=== PATIENT | male | born 1940 | race Caucasian/White ===

== ENCOUNTER 2016-12-07 15:20 | Inpatient (IN) | payer MEDICARE ==
[~2016-12-07] VITALS: Ht 180.3 cm; Wt 115.0 kg
[2016-12-07 15:54] VITALS: BP 128/88; PULSE 62; RESP 18; TEMP 98.2; O2SAT 100
[2016-12-07 16:08] VITALS: BP 107/72; PULSE 100; RESP 18; O2SAT 97
--- NOTE | 2016-12-07 16:14 | PD ---
HPI Chief Complaint: Fall Time Seen by Provider: 16:04 Travel History International Travel<30 days: No Contact w/Intl Traveler<30days: No Traveled to known affect area: No History of Present Illness HPI Is a 76-year-old male presents emergency department after being found wandering his neighborhood. Not much history is available initially the patient has a history of dementia. His arrives and states she went to the grocery store and left him alone and he must of started to wonder. Unknown history of fall however the patient does have some abrasions on the left side of his face. She states that he is not on anticoagulants. Patient is pleasantly confused oriented to self and place only. Denies any pain in his chest abdomen pelvis or extremities. [facility] Past Medical History Medical History: Unable to Obtain Past Surgical History Surgical History: Unable to Obtain Social History Alcohol Use: No Tobacco Use: No Substance Use: No Allergies-Medications (Allergen,Severity, Reaction): Coded Allergies: No Known Allergies (Unverified , 12/07/16) Reported Meds & Prescriptions Reported Meds & Active Scripts Active Active Prescriptions or Reported Medications Unobtainable Review of Systems Except as stated in HPI: all other systems reviewed are Neg Physical Exam Narrative GENERAL: Well-developed well-nourished no obvious distress, pleasantly confused. SKIN: Focused skin assessment warm/dry. HEAD: No collins signs or raccoons eyes, abrasion to left forehead.. Normocephalic. EYES: Pupils equal and round. No scleral icterus. No injection or drainage. ENT: No nasal bleeding or discharge. Mucous membranes pink and moist. NECK: Trachea midline. No JVD. CARDIOVASCULAR: Regular rate and rhythm. No murmur appreciated. RESPIRATORY: No accessory muscle use. Clear to auscultation. Breath sounds equal bilaterally. GASTROINTESTINAL: Abdomen soft, non-tender, nondistended. Hepatic and splenic margins not palpable. MUSCULOSKELETAL: No obvious deformities. No clubbing. No cyanosis. No edema. NEUROLOGICAL: Awake and alert oriented 2 and confused. Cranial nerves II through XII are grossly intact and nonfocal, 5 out of 5 strength in all 4 extremity's. Normal speech. This is his baseline mental status according to family. PSYCHIATRIC: Appropriate mood and affect; insight and judgment normal. Data Data Last Documented VS Vital Signs Date Time Temp Pulse Resp B/P Pulse Ox O2 Delivery O2 Flow Rate FiO2 7/27/17 17:53 87 18 112/74 96 Room Air 12/07/16 15:54 98.2 Orders Electrocardiogram (12/07/16 16:10) Complete Blood Count With Diff (12/07/16 16:10) Comprehensive Metabolic Panel (12/07/16 16:10) Creatine Kinase (Cpk) (12/07/16 16:10) Prothrombin Time / Inr (Pt) (12/07/16 16:10) Act Partial Throm Time (Ptt) (12/07/16 16:10) Ct Brain W/O Iv Contrast(Rout) (12/07/16 16:10) Blood Glucose (12/07/16 16:10) Ecg Monitoring (12/07/16 16:10) Iv Access Insert/Monitor (12/07/16 16:10) Oximetry (12/07/16 16:10) Sodium Chloride 0.9% Flush (Ns Flush) (12/07/16 16:15) Ct Cerv Spine W/O Contrast (12/07/16 ) Admit Order (Ed Use Only) (12/07/16 ) Consult Neurosurgery (12/07/16 ) Labs Laboratory Tests Test 12/07/16 16:37 White Blood Count 6.7 TH/MM3 Red Blood Count 5.44 MIL/MM3 Hemoglobin 16.1 GM/DL Hematocrit 49.4 % Mean Corpuscular Volume 90.9 FL Mean Corpuscular Hemoglobin 29.6 PG Mean Corpuscular Hemoglobin 32.6 % Concent Red Cell Distribution Width 14.9 % Platelet Count 127 TH/MM3 Mean Platelet Volume 8.1 FL Neutrophils (%) (Auto) 79.6 % Lymphocytes (%) (Auto) 8.1 % Monocytes (%) (Auto) 10.3 % Eosinophils (%) (Auto) 1.7 % Basophils (%) (Auto) 0.3 % Neutrophils # (Auto) 5.3 TH/MM3 Lymphocytes # (Auto) 0.5 TH/MM3 Monocytes # (Auto) 0.7 TH/MM3 Eosinophils # (Auto) 0.1 TH/MM3 Basophils # (Auto) 0.0 TH/MM3 CBC Comment DIFF FINAL Differential Comment Prothrombin Time 11.9 SEC Prothromb Time International 1.1 RATIO Ratio Activated Partial 28.2 SEC Thromboplast Time Sodium Level 138 MEQ/L Potassium Level 5.2 MEQ/L Chloride Level 105 MEQ/L Carbon Dioxide Level 25.1 MEQ/L Anion Gap 8 MEQ/L Blood Urea Nitrogen 23 MG/DL Creatinine 1.10 MG/DL Estimat Glomerular Filtration 65 ML/MIN Rate Random Glucose 84 MG/DL Calcium Level 8.5 MG/DL Total Bilirubin 0.9 MG/DL Aspartate Amino Transf 32 U/L (AST/SGOT) Alanine Aminotransferase 22 U/L (ALT/SGPT) Alkaline Phosphatase 87 U/L Total Creatine Kinase 91 U/L Total Protein 6.3 GM/DL Albumin 3.2 GM/DL MDM Medical Decision Making Medical Screen Exam Complete: Yes Emergency Medical Condition: Yes Interpretation(s) EKG shows atrial fibrillation at a rate of 100, right bundle branch block. No concerning ST segment changes. PVCs. Differential Diagnosis Fall, dementia, intracranial hemorrhage, neck injury. Narrative Course Patient roomed in emergency department, CT scans were performed and shows: Last [address] 12/07/16 1610 Signed Impressions: Service Date/Time: November 16:48 - CONCLUSION: 1. Minimal acute subdural hemorrhage within the left high parietal region which likely is post traumatic. Clinical correlation is recommended. 2. Diffuse cerebral atrophy. 3. No acute infarct, midline shift or acute subdural/epidural hematoma. Sukh Mejia MD Cervical Spine CT 12/07/16 0000 Signed Impressions: Service Date/Time: November 16:48 - CONCLUSION: 1. No acute fracture or prevertebral soft tissue swelling. 2. Significant degenerative disc disease at C6-7, C7-T1 and T1-T2. 3. No bony spinal canal stenosis or significant neural foraminal narrowing. Sukh Mejia MD Imaging was discussed with family and Dr. Onel Hall states likely nonoperative management. Blood pressure in acceptable ranges, platelet count normal, coagulations normal. Patient discussed with Dr. Link for admission to [facility] he is agreeable. Critical Care Narrative Aggregate critical care time was 35 minutes. Time to perform other separately billable procedures was not included in the critical care time. My time did not include minutes spent treating any other patients simultaneously or on activities that did not directly contribute to the patient's treatment. The services I provided to this patient were to treat and/or prevent clinically significant deterioration that could result in: , disability, organ failure I provided critical care services requiring my management, as noted below: Chart data review, documentation time, medication orders and management, vital sign assessments/reviewing monitor data, ordering and reviewing lab tests, ordering and interpreting/reviewing x-rays and diagnostic studies, care of the patient and discussion of the patient with the admitting physicians. Diagnosis Primary Impression: Intracranial hemorrhage Admitting Information Admitting Physician Requests: Admit Scripts Unable to Obtain Active Prescriptions or Reported Meds Condition: Stable Sukh Hernandez MD Dec 07, 2016 16:14
[2016-12-07] MEDS ORDERED: SODIUM CHLORIDE 0.9% FLUSH 5 ML FLUSH IV FLUSH PRN (16:15)
--- NOTE | 2016-12-07 17:01 | RADRPT ---
EXAM DATE/TIME: 12/07/2016 16:48 [facility] COMPARISON: No previous studies available for comparison. INDICATIONS : Confusion and altered mental status due to possible fall. RADIATION DOSE: 41.81 CTDIvol (mGy) MEDICAL HISTORY : Dementia. AFIB SURGICAL HISTORY : None. ENCOUNTER: Initial ACUITY: 1 day PAIN SCALE: 2/10 LOCATION: Bilateral cranial TECHNIQUE: Multiple contiguous axial images were obtained of the head. Using automated exposure control and adj ustment of the mA and/or kV according to patient size, radiation dose was kept as low as reasonably a chievable to obtain optimal diagnostic quality images. DICOM format image data is available electro nically for review and comparison. FINDINGS: There is minimal acute subarachnoid hemorrhage within the left high parietal region which likely is p osttraumatic. Clinical correlation is recommended. Diffuse cerebral atrophy. There is no midline shif t. No acute infarction is noted. No acute subdural or epidural hematoma is noted. The bone windows ar e unremarkable without skull fracture. CONCLUSION: 1. Minimal acute subdural hemorrhage within the left high parietal region which likely is post trauma tic. Clinical correlation is recommended. 2. Diffuse cerebral atrophy. 3. No acute infarct, midline shift or acute subdural/epidural hematoma. Sukh Mejia MD on December 07, 2016 at 16:56 Board Certified Radiologist. This report was verified electronically.
--- NOTE | 2016-12-07 17:10 | EKG ---
Date Performed: 12/07/2016 Time Performed: 16:12:05 PTAGE: 76 years EKG: ATRIAL FIBRILLATION WITH RAPID VENTRICULAR RESPONSE RIGHT BUNDLE BRANCH BLOCK ABNORMAL ECG INTERPRETATION BASED ON A DEFAULT AGE OF 39 YEARS NO PREVIOUS TRACING DOCTOR: Osmar Thrasher Interpretating Date/Time 12/07/2016 17:08:44
[2016-12-07 17:13] LABS: AUTOMATED NEUTROPHIL # 5.3 TH/MM3 (1.8-7.7); BASOPHIL % 0.3 % (0.0-2.0); EOSINOPHIL # 0.1 TH/MM3 (0-0.4); EOSINOPHIL % 1.7 % (0.0-4.0); HEMATOCRIT 49.4 % (39.0-51.0); HEMO FLAGS DIFF FINAL; LYMPH % 8.1 % (9.0-44.0); LYMPHOCYTE # 0.5 TH/MM3 (1.0-4.8); MEAN CELL VOLUME 90.9 FL (80.0-100.0); MEAN CORPUSCULAR HEMOGLOBIN 29.6 PG (27.0-34.0); MEAN CORPUSCULAR HGB CONC 32.6 % (32.0-36.0); MONO % 10.3 % (0.0-8.0); NEUT % 79.6 % (16.0-70.0); PLATELET COUNT 127 TH/MM3 (150-450); RED BLOOD COUNT 5.44 MIL/MM3 (4.50-5.90); RED CELL DISTRIBUTION WIDTH 14.9 % (11.6-17.2); WHITE BLOOD COUNT 6.7 TH/MM3 (4.0-11.0)
[2016-12-07 17:29] LABS: APTT (PATIENT) 28.2 SEC (24.3-30.1); INTERNATIONAL NORMALIZED RATIO 1.1 RATIO; PROTHROMBIN TIME - PATIENT 11.9 SEC (9.8-11.6)
--- NOTE | 2016-12-07 17:42 | RADRPT ---
EXAM DATE/TIME: 12/07/2016 16:48 [facility] COMPARISON: No previous studies available for comparison. INDICATIONS : Neck pain due to possible fall. RADIATION DOSE: 23.02 CTDIvol (mGy) MEDICAL HISTORY : Dementia. AFIB SURGICAL HISTORY : None. ENCOUNTER: Initial ACUITY: 1 day PAIN SCALE: 1/10 LOCATION: Bilateral neck region. TECHNIQUE: Volumetric scanning of the cervical spine was performed. Multiplanar reconstructions in the sagittal, coronal and oblique axial planes were performed. Using automated exposure control and adjustment o f the mA and/or kV according to patient size, radiation dose was kept as low as reasonably achievable to obtain optimal diagnostic quality images. DICOM format image data is available electronically f or review and comparison. FINDINGS: There is no acute fracture or prevertebral soft tissue swelling. The bony relationship and alignment between C1 and C2 is well maintained. No bony spinal canal stenosis is noted. Significant disc spa ce narrowing is noted at C6-7, C7-T1 and T1-T2. CONCLUSION: 1. No acute fracture or prevertebral soft tissue swelling. 2. Significant degenerative disc disease at C6-7, C7-T1 and T1-T2. 3. No bony spinal canal stenosis or significant neural foraminal narrowing. Sukh Mejia MD on December 07, 2016 at 17:32 Board Certified Radiologist. This report was verified electronically.
[2016-12-07 17:53] VITALS: BP 112/74; PULSE 87; RESP 18; O2SAT 96
[2016-12-07 18:06] LABS: ALKALINE PHOSPHATASE 87 U/L (45-117); ALT (GPT) 22 U/L (12-78); ANION GAP 8 MEQ/L (5-15); AST (GOT) 32 U/L (15-37); BICARBONATE 25.1 MEQ/L (21.0-32.0); BLOOD UREA NITROGEN 23 MG/DL (7-18); CHLORIDE 105 MEQ/L (98-107); CREATINE KINASE 91 U/L (39-308); GLOMERULAR FILTRATION RATE 65 ML/MIN (>89); POTASSIUM 5.2 MEQ/L (3.5-5.1); SODIUM (NA) 138 MEQ/L (136-145); TOTAL BILIRUBIN ADULT 0.9 MG/DL (0.2-1.0)
[2016-12-07 19:20] VITALS: BP 119/71; PULSE 89; RESP 16; O2SAT 99
[2016-12-07] MEDS ORDERED: ACETAMINOPHEN 325 MG TAB PO PRN (20:30)
[2016-12-07] MEDS ORDERED: SENNOSIDES 8.6 MG TAB PO PRN (20:30)
[2016-12-07] MEDS ORDERED: CHLORHEXIDINE GLUCONATE 2 % 1 PACK (2 CLOTHS) TOP PRN (20:30)
[2016-12-07] MEDS ORDERED: BISACODYL 10 MG SUPP RECTAL PRN (20:30)
[2016-12-07] MEDS ORDERED: MAGNESIUM HYDROXIDE SUSP 30 ML CUP PO PRN (20:30)
[2016-12-07] MEDS ORDERED: MISCELLANEOUS NURSING INFORMATION XX SCH (20:30)
[2016-12-07] MEDS ORDERED: ONDANSETRON HCL 4 MG/2 ML VIAL IV PRN (20:30)
[2016-12-07] MEDS ORDERED: RESP: ALBUTEROL 2.5 MG/IPRATROPIUM 0.5 MG NEB (PRN) INH (20:30)
[2016-12-07] MEDS ORDERED: LACTULOSE SYRUP 20 GM/30 ML CUP PO PRN (20:30)
[2016-12-07] MEDS ORDERED: SODIUM CHLORIDE 0.9% FLUSH 10 ML FLUSH PRN (20:30)
[2016-12-07] MEDS ORDERED: Vancomycin Consult Pharmacy 1 EA OTHER SCH (20:30)
[2016-12-07 21:00] VITALS: BP 114/60; PULSE 87; RESP 13; TEMP 97.7; O2SAT 6
[2016-12-07] MEDS ORDERED: VANCOMYCIN INJ 1,000 MG in SODIUM CHLOR 0.9% 250 ML INJ 250 ML IV ONE (21:00)
--- NOTE | 2016-12-07 21:09 | HHI.HP ---
HPI Service Critical Care Medicine Primary Care Physician Josette Mahmood MD Admission Diagnosis Subarachnoid Hemorrhage. Diagnosis: Travel History International Travel<30 Days: No Contact w/Intl Traveler <30 Da: No Traveled to Known Affected Are: No History of Present Illness 76-year-old pleasantly demented male presents after he eloped from home and has being found wandering his neighborhood. Per his statement she went to the grocery store and left him alone. Unknown history of fall however the patient does have some abrasions and bruises on the left side of his face. She states that he is not on anticoagulants. CT of the head in the emergency department revealed minimal acute subdural hemorrhage within the left high parietal region which likely is post traumatic. Review of Systems ROS Unobtainable due to patient's baseline dementia Past Family Social History Allergies: Coded Allergies: No Known Allergies (Unverified , 12/07/16) Past Medical History Personal dementia Alzheimer type Past Surgical History Unobtainable Reported Medications Reported Meds & Active Scripts Active Reported Aricept (Donepezil HCl) 10 Mg Tablet 10 Mg PO DAILY@1600 Active Ordered Medications Current Medications Medications (Trade) Dose Ordered Sig/Ari Route PRN Reason Start Time Stop Time Status Last Admin Dose Admin Sodium Chloride (NS 1000 ml Inj) 1,000 ml @ 84 mls/hr [id number] IV 12/07/16 21:00 Sodium Chloride (NS Flush) 2 ml UNSCH PRN .XX FLUSH AFTER USING IV ACCESS 12/07/16 20:30 Sodium Chloride (NS Flush) 2 ml BID .XX 12/07/16 21:00 Acetaminophen (Tylenol) 650 mg Q6H PRN PO PAIN 1-10 AND/OR FEVER >101F 12/07/16 20:30 Famotidine (Pepcid Inj) 20 mg Q12HR IV PUSH 12/07/16 21:00 Ondansetron HCl (Zofran Inj) 4 mg Q6H PRN IV NAUSEA OR VOMITING 12/07/16 20:30 Miscellaneous Information 1 [id number] XX 12/07/16 20:30 Chlorhexidine Gluconate (Chlorhexidine 2% Cloth) 3 pack Taper DAILY@04 TOP 12/08/16 04:00 12/04/17 03:59 Chlorhexidine Gluconate (Chlorhexidine 2% Cloth) 3 pack UNSCH PRN [facility] 12/07/16 20:30 Senna/Docusate Sodium (Pastora-Colace) 1 tab BID PO 12/07/16 21:00 Magnesium Hydroxide (Milk Of Akila Lijulio césar) 30 ml Q12H PRN PO MILD - MODERATE CONSTIPATION 12/07/16 20:30 Sennosides (Senokot) 17.2 mg Q12H PRN PO MODERATE - SEVERE CONSTIPATION 12/07/16 20:30 Bisacodyl (Dulcolax Supp) 10 mg DAILY PRN RECTAL SEVERE CONSITIPATION 12/07/16 20:30 Lactulose 30 ml 30 ml DAILY PRN PO SEVERE CONSITIPATION 12/07/16 20:30 Piperacillin Sod/ Tazobactam Sod 100 ml @ 200 mls/hr Q6H IV 12/07/16 21:00 Vancomycin HCl 1000 mg/Sodium Chloride 250 ml @ 125 mls/hr ONCE ONCE IV 12/07/16 21:00 12/07/16 22:59 Pharmacy Profile Note 0 ml @ 0 mls/hr UNSCH OTHER 12/07/16 20:30 Vancomycin HCl/ Sodium Chloride (Vancomycin Inj/ NS 500 ml Inj) 515 ml @ 257.5 mls/ hr Q18H IV 12/08/16 09:00 Miscellaneous Information SPECIFIC LAB TO BE DRAWN:VANCO TROUGH DATE TO BE DR... ONCE ONCE .XX 12/09/16 20:45 12/09/16 20:46 Family History No family history of early cancer or coronary artery disease Social History Denies alcohol or illicit drug or tobacco abuse Physical Exam Vital Signs Vital Signs Date Time Temp Pulse Resp B/P Pulse Ox O2 Delivery O2 Flow Rate FiO2 12/07/16 19:21 89 14 99 Room Air 12/07/16 19:20 89 16 119/71 99 Room Air 12/07/16 17:53 87 18 112/74 96 Room Air 12/07/16 16:08 100 18 107/72 97 Room Air 12/07/16 15:54 98.2 62 18 128/88 100 Physical Exam GENERAL: Well-nourished, well-developed patient. Pleasantly demented gentleman SKIN: Warm and dry. HEAD: Normocephalic. Abrasions and ecchymosis of the left forehead and face EYES: No scleral icterus. No injection or drainage. NECK: Supple, trachea midline. No JVD or lymphadenopathy. CARDIOVASCULAR: Regular rate and rhythm without murmurs, gallops, or rubs. RESPIRATORY: Breath sounds equal bilaterally. No accessory muscle use. GASTROINTESTINAL: Abdomen soft, non-tender, nondistended. MUSCULOSKELETAL: No cyanosis, or edema. BACK: Nontender without obvious deformity. No CVA tenderness. EXTREMITIES: Moves all 4, no clubbing or cyanosis. Redness and edema on both lower extremities with some warm skin due to cellulitis Laboratory Laboratory Tests Test 12/07/16 16:37 White Blood Count 6.7 Red Blood Count 5.44 Hemoglobin 16.1 Hematocrit 49.4 Mean Corpuscular Volume 90.9 Mean Corpuscular Hemoglobin 29.6 Mean Corpuscular Hemoglobin 32.6 Concent Red Cell Distribution Width 14.9 Platelet Count 127 Mean Platelet Volume 8.1 Neutrophils (%) (Auto) 79.6 Lymphocytes (%) (Auto) 8.1 Monocytes (%) (Auto) 10.3 Eosinophils (%) (Auto) 1.7 Basophils (%) (Auto) 0.3 Neutrophils # (Auto) 5.3 Lymphocytes # (Auto) 0.5 Monocytes # (Auto) 0.7 Eosinophils # (Auto) 0.1 Basophils # (Auto) 0.0 CBC Comment DIFF FINAL Differential Comment Prothrombin Time 11.9 Prothromb Time International 1.1 Ratio Activated Partial 28.2 Thromboplast Time Sodium Level 138 Potassium Level 5.2 Chloride Level 105 Carbon Dioxide Level 25.1 Anion Gap 8 Blood Urea Nitrogen 23 Creatinine 1.10 Estimat Glomerular Filtration 65 Rate Random Glucose 84 Calcium Level 8.5 Total Bilirubin 0.9 Aspartate Amino Transf 32 (AST/SGOT) Alanine Aminotransferase 22 (ALT/SGPT) Alkaline Phosphatase 87 Total Creatine Kinase 91 Total Protein 6.3 Albumin 3.2 Result Diagram: 12/07/16 1637 12/07/16 1637 Imaging Last [address] 12/07/16 1610 Signed Impressions: Service Date/Time: November 16:48 - CONCLUSION: 1. Minimal acute subdural hemorrhage within the left high parietal region which likely is post traumatic. Clinical correlation is recommended. 2. Diffuse cerebral atrophy. 3. No acute infarct, midline shift or acute subdural/epidural hematoma. Sukh Mejia MD Cervical Spine CT 12/07/16 0000 Signed Impressions: Service Date/Time: November 16:48 - CONCLUSION: 1. No acute fracture or prevertebral soft tissue swelling. 2. Significant degenerative disc disease at C6-7, C7-T1 and T1-T2. 3. No bony spinal canal stenosis or significant neural foraminal narrowing. Sukh Mejia MD Assessment and Plan Assessment and Plan Small subdural hematoma - No intervention indicated - Repeat CT head a.m. - Neurosurgery appreciated - PT and OT Cellulitis - Vancomycin and Zosyn - Blood cultures Alzheimer dementia - Aricept DVT GI prophylaxis - Teds SCDs - No pharmacological DVT prophylaxis due to ICH - Pepcid Critical Care: The total critical care time was 35 minutes. Time to perform other separately billable procedures was not included in the critical care time. Julian Link MD Dec 07, 2016 21:09
[2016-12-07] MEDS ORDERED: ARIC10TA2 PO (21:33)
[2016-12-07] MEDS ORDERED: SILV1CRE20 TOPICAL (21:51)
[2016-12-07] MEDS ORDERED: ATEN50TA PO (21:51)
[2016-12-07] MEDS ORDERED: FURO1TAB62 PO (21:51)
[2016-12-07] MEDS ORDERED: LEVO175T2 PO (21:51)
[2016-12-07] MEDS ORDERED: CEPH500C PO (21:51)
[2016-12-07] MEDS ORDERED: PRAV20TA2 PO (21:51)
[2016-12-07] MEDS ORDERED: POTA8CAP PO (21:51)
[2016-12-07] MEDS: SODIUM CHLOR 0.9% 1000 ML INJ 1,000 ML IV SCH (22:21)
[2016-12-07] MEDS: PIPERACIL-TAZO 4.5 GM PREMIX 100 ML IV SCH (22:22)
[2016-12-07] MEDS: SODIUM CHLORIDE 0.9% FLUSH 10 ML FLUSH SCH (22:22)
[2016-12-07] MEDS: FAMOTIDINE 20 MG/2 ML VIAL IV PUSH SCH (22:27)
[2016-12-07] MEDS: DOCUSATE SODIUM 50 MG/SENNA 8.6 MG TAB PO SCH (22:28)
[2016-12-07 23:00] VITALS: PULSE 103
--- NOTE | 2016-12-07 23:03 | PD.CONS ---
History of Present Illness Service Neurosurgery Consult Requested By Emergency room. Dr. Hernandez Reason for Consult Traumatic brain injury Primary Care Physician Josette Mahmood MD Diagnoses: History of Present Illness Pleasant 76-year-old male with a history of dementia who apparently was wandering in his neighborhood while his was at the grocery store. No definite trauma, but the patient has obvious abrasions to the left face and periorbital region. No history of seizure. No emesis reported. The patient denies any headaches dizziness vision problems pain which is numbness in the extremities. However he is noted to be a poor historian. He states that he may have fallen this evening. Review of Systems Patient is unable to give a reliable review of systems. He does not complain of anything and gives negative responses for all review of systems items Past Family Social History Allergies: Coded Allergies: No Known Allergies (Unverified , 12/07/16) Past Medical History History of atrial fibrillation. Previously on Coumadin but not any longer according to his family. Hypertension Hyperlipidemia Hypothyroidism Dementia Reported Medications Reported Meds & Active Scripts Active Reported Silvadene Topical (Silver Sulfadiazine) 1 % Cream 1 Applic TOPICAL DAILY Cephalexin 500 Mg Cap 500 Mg PO Q12H Potassium Chloride ER (Potassium Chloride) 8 Meq Cap 8 Meq PO DAILY Lasix (Furosemide) 20 Mg Tab 20 Mg PO DAILY Atenolol 50 Mg Tab 50 Mg PO DAILY Pravastatin 20 Mg Tab 20 Mg PO DAILY Levothyroxine (Levothyroxine Sodium) 175 Mcg Tab 175 Mcg PO DAILY Aricept (Donepezil HCl) 10 Mg Tablet 10 Mg PO DAILY@1600 Social History No history of significant alcohol use. Does not smoke cigarettes Lives with his Physical Exam Vital Signs Vital Signs Date Time Temp Pulse Resp B/P Pulse Ox O2 Delivery O2 Flow Rate FiO2 12/07/16 21:00 97.7 87 13 114/60 6 12/07/16 19:21 89 14 99 Room Air 12/07/16 19:20 89 16 119/71 99 Room Air 12/07/16 17:53 87 18 112/74 96 Room Air 12/07/16 16:08 100 18 107/72 97 Room Air 12/07/16 15:54 98.2 62 18 128/88 100 Physical Exam GENERAL: This is a well-nourished, well-developed patient, in no apparent distress. SKIN: Mild laceration and abrasions to the left hand and forearm. HEAD: Atraumatic. Normocephalic. No temporal or scalp tenderness. EYES: Mild left conjunctival edema and scleral ecchymosis.. ENT: Moderate left facial and infraorbital ecchymosis and contusion and edema. No other facial fracture or deformity noted. No CSF otorrhea or rhinorrhea. Dentition reasonably intact. Oropharynx otherwise clear. NECK: Trachea midline. No JVD or lymphadenopathy. Supple, nontender, no meningeal signs. CARDIOVASCULAR: Irregular rhythm. No murmur or carotid bruit RESPIRATORY: Clear to auscultation. Breath sounds equal bilaterally. No wheezes , rales, or rhonchi. GASTROINTESTINAL: Abdomen soft, non-tender, nondistended. No hepato-splenomegaly , or palpable masses. No guarding. MUSCULOSKELETAL: Mild to moderate distal lower extremity edema without ecchymosis. His left toes are somewhat cold to touch but no definite cyanosis. Dorsalis pedis pulses 2+ bilateral. No significant long bone or joint deformity. No pain with extremity range of motion throughout the upper and lower extremities. NEUROLOGICAL: Awake and alert Oriented to his name only. He does not know where he is. He does not know the date. Speech is clear Conversant. He gives mostly negative responses when asked regarding any health problems or any recent fall. Follow simple commands well Answers simple questions Markedly diminished judgment and insight Recent and remote memory are significantly impaired No evidence of anxiety or depression Pupils are equal and reactive to accommodation. Extra-ocular movements, visual hood to confrontation, facial sensorimotor, tongue, palate, sternocleidomastoid testing, hearing to finger rub testing, and bilateral shoulder shrug are all intact. Sensation is intact to light touch in all extremities Strength normal major flexion and extension groups all extremities Bran's absent bilaterally No ankle clonus Plantar responses absent bilateral Fine motor movements intact upper extremities Laboratory Laboratory Tests Test 12/07/16 16:37 White Blood Count 6.7 Red Blood Count 5.44 Hemoglobin 16.1 Hematocrit 49.4 Mean Corpuscular Volume 90.9 Mean Corpuscular Hemoglobin 29.6 Mean Corpuscular Hemoglobin 32.6 Concent Red Cell Distribution Width 14.9 Platelet Count 127 Mean Platelet Volume 8.1 Neutrophils (%) (Auto) 79.6 Lymphocytes (%) (Auto) 8.1 Monocytes (%) (Auto) 10.3 Eosinophils (%) (Auto) 1.7 Basophils (%) (Auto) 0.3 Neutrophils # (Auto) 5.3 Lymphocytes # (Auto) 0.5 Monocytes # (Auto) 0.7 Eosinophils # (Auto) 0.1 Basophils # (Auto) 0.0 CBC Comment DIFF FINAL Differential Comment Prothrombin Time 11.9 Prothromb Time International 1.1 Ratio Activated Partial 28.2 Thromboplast Time Sodium Level 138 Potassium Level 5.2 Chloride Level 105 Carbon Dioxide Level 25.1 Anion Gap 8 Blood Urea Nitrogen 23 Creatinine 1.10 Estimat Glomerular Filtration 65 Rate Random Glucose 84 Calcium Level 8.5 Total Bilirubin 0.9 Aspartate Amino Transf 32 (AST/SGOT) Alanine Aminotransferase 22 (ALT/SGPT) Alkaline Phosphatase 87 Total Creatine Kinase 91 Total Protein 6.3 Albumin 3.2 Result Diagram: 12/07/16 1637 12/07/16 1637 Imaging 12/07/16 CT scan of the head and cervical spine images of been reviewed by the undersigned. There is very mild hemorrhage noted at the left frontal and parietal convexity with small amount of subarachnoid hemorrhage near the posterior parietal convexity. There was significant mass effect. Mild to moderate ventriculomegaly which appears to be in proportion to the degree of surrounding chronic brain atrophy. No pneumocephalus noted. No definite skull fracture. Head CT 12/07/16 1610 Signed Impressions: Service Date/Time: November 16:48 - CONCLUSION: 1. Minimal acute subdural hemorrhage within the left high parietal region which likely is post traumatic. Clinical correlation is recommended. 2. Diffuse cerebral atrophy. 3. No acute infarct, midline shift or acute subdural/epidural hematoma. Sukh Mejia MD Cervical Spine CT 12/07/16 0000 Signed Impressions: Service Date/Time: November 16:48 - CONCLUSION: 1. No acute fracture or prevertebral soft tissue swelling. 2. Significant degenerative disc disease at C6-7, C7-T1 and T1-T2. 3. No bony spinal canal stenosis or significant neural foraminal narrowing. Sukh Mejia MD Assessment and Plan Assessment and Plan Impression: 1. Mild traumatic brain injury 2. Left facial contusions 3. Atrial fibrillation. Plan: Patient has been admitted to intensive surgical care unit for close vital signs and neurologic checks. Non-chemical DVT prophylaxis Continue keep blood pressure within normal parameters Physical therapy consult to assess gait and ambulation. Follow-up CT scan head Feng Sykes MD Dec 07, 2016 23:03
[2016-12-08] VITALS (12 sets, daily range): BP systolic 100–120; BP diastolic 56–68; PULSE 71–93; RESP 14–25; TEMP 97.4–98.3; O2SAT 93–98
[2016-12-08] MEDS: PIPERACIL-TAZO 4.5 GM PREMIX 100 ML IV SCH ×4 (03:09→21:22)
[2016-12-08] MEDS: CHLORHEXIDINE GLUCONATE 2 % 1 PACK (2 CLOTHS) TOP SCH (04:00)
[2016-12-08] MEDS: FAMOTIDINE 20 MG/2 ML VIAL IV PUSH SCH ×2 (08:43→21:21)
[2016-12-08] MEDS: DOCUSATE SODIUM 50 MG/SENNA 8.6 MG TAB PO SCH ×2 (08:43→21:21)
[2016-12-08] MEDS: VANCOMYCIN 1,500 MG/NS 500 ML IV SCH ×2 (08:43)
--- NOTE | 2016-12-08 09:21 | HHI.CCPN ---
Subjective Remarks/Hospital Course 76-year-old pleasantly demented male presents after he eloped from home and has being found wandering his neighborhood. Per his statement she went to the grocery store and left him alone. Unknown history of fall however the patient does have some abrasions and bruises on the left side of his face. He states that he is not on anticoagulants. CT of the head in the emergency department revealed minimal acute subdural hemorrhage within the left high parietal region which likely is post traumatic. 12/08: Exam nonfocal. Sleepy. Stable bruise left forehead. Objective Vital Signs Date Time Temp Pulse Resp B/P Pulse Ox O2 Delivery O2 Flow Rate FiO2 12/08/16 06:00 81 12/08/16 04:00 97.8 21 100/68 98 12/07/16 19:21 Room Air Intake and Output 12/07/16 12/07/16 12/08/16 08:00 16:00 00:00 Intake Total 0 ml Balance 0 ml Result Diagram: 12/07/16 1637 12/07/16 1637 Imaging Last [address] 12/07/16 1610 Signed Impressions: Service Date/Time: November 16:48 - CONCLUSION: 1. Minimal acute subdural hemorrhage within the left high parietal region which likely is post traumatic. Clinical correlation is recommended. 2. Diffuse cerebral atrophy. 3. No acute infarct, midline shift or acute subdural/epidural hematoma. Sukh Mejia MD Cervical Spine CT 12/07/16 0000 Signed Impressions: Service Date/Time: November 16:48 - CONCLUSION: 1. No acute fracture or prevertebral soft tissue swelling. 2. Significant degenerative disc disease at C6-7, C7-T1 and T1-T2. 3. No bony spinal canal stenosis or significant neural foraminal narrowing. Sukh Mejia MD Objective Remarks GENERAL: Lethargic. SKIN: Warm and dry. HEAD: Normocephalic. Abrasions and ecchymosis of the left forehead and face EYES: No scleral icterus. No injection or drainage. NECK: Supple, trachea midline. CARDIOVASCULAR: Regular rate and rhythm without murmurs, gallops, or rubs. No JVD. RESPIRATORY: Breath sounds equal bilaterally. No accessory muscle use. GASTROINTESTINAL: Abdomen soft, non-tender, nondistended. BS active. MUSCULOSKELETAL: No cyanosis, or edema. Well perfused. BACK: Nontender without obvious deformity. No CVA tenderness. EXTREMITIES: Moves all 4, no clubbing or cyanosis. Redness and edema on both lower extremities with some warm skin on the right due to cellulitis A/P Assessment and Plan Small subdural hematoma - No intervention indicated - Repeat CT head a.m. - Neurosurgery appreciated - PT and OT Cellulitis - Vancomycin and Zosyn - Blood cultures Alzheimer dementia - Aricept DVT GI prophylaxis - Avoid Teds SCDs - No pharmacological DVT prophylaxis due to ICH - Pepcid Overall impression: Minor head trauma with nonfocal neurological exam, Longstanding dementia. Protects airway fine. Santana Parikh MD Dec 08, 2016 09:20
[2016-12-08] MEDS: SODIUM CHLORIDE 0.9% FLUSH 10 ML FLUSH SCH ×2 (09:37→21:00)
[2016-12-08] MEDS: SODIUM CHLOR 0.9% 1000 ML INJ 1,000 ML IV SCH ×2 (09:37→20:50)
[2016-12-08 10:59] LABS: BASOPHIL % 0.5 % (0.0-2.0); EOSINOPHIL # 0.1 TH/MM3 (0-0.4); EOSINOPHIL % 1.8 % (0.0-4.0); HEMATOCRIT 49.9 % (39.0-51.0); HEMO FLAGS DIFF FINAL; LYMPH % 15.2 % (9.0-44.0); LYMPHOCYTE # 0.9 TH/MM3 (1.0-4.8); MEAN CELL VOLUME 91.5 FL (80.0-100.0); MEAN CORPUSCULAR HEMOGLOBIN 30.1 PG (27.0-34.0); MEAN CORPUSCULAR HGB CONC 32.9 % (32.0-36.0); MONO % 10.8 % (0.0-8.0); NEUT % 71.7 % (16.0-70.0); PLATELET COUNT 131 TH/MM3 (150-450); RED BLOOD COUNT 5.45 MIL/MM3 (4.50-5.90); RED CELL DISTRIBUTION WIDTH 15.2 % (11.6-17.2); WHITE BLOOD COUNT 5.7 TH/MM3 (4.0-11.0)
[2016-12-08 11:05] LABS: ALKALINE PHOSPHATASE 93 U/L (45-117); ALT (GPT) 19 U/L (12-78); ANION GAP 9 MEQ/L (5-15); AST (GOT) 18 U/L (15-37); BICARBONATE 22.7 MEQ/L (21.0-32.0); BLOOD UREA NITROGEN 20 MG/DL (7-18); CHLORIDE 105 MEQ/L (98-107); GLOMERULAR FILTRATION RATE 73 ML/MIN (>89); MAGNESIUM 2.4 MG/DL (1.5-2.5); POTASSIUM 4.1 MEQ/L (3.5-5.1); SODIUM (NA) 137 MEQ/L (136-145); TOTAL BILIRUBIN ADULT 0.9 MG/DL (0.2-1.0)
--- NOTE | 2016-12-08 12:47 | HHI.NSPN ---
(Jose Hair) History Chief Complaint: None (Jose Hair) Interval History 12/07: Pleasant 76-year-old male with a history of dementia who apparently was wandering in his neighborhood while his was at the grocery store. No definite trauma, but the patient has obvious abrasions to the left face and periorbital region. No history of seizure. No emesis reported. The patient denies any headaches dizziness vision problems pain which is numbness in the extremities. However he is noted to be a poor historian. He states that he may have fallen this evening. 12/08: The patient is awake and alert sitting in a chair when seen this afternoon. He has no complaints but did say he had a headache earlier which has resolved. His reports that he is at his baseline mental status. (Jose Hair) System Review Comments Constitutional: Patient denies any fever or chills. HEENT: Patient with aching to the left side of the face. He denies any visual or hearing problems. Neck: Patient denies any neck pain. Respiratory: Patient denies any shortness of breath or productive cough. Cardiovascular: Patient denies any chest pain, palpitations or irregular heartbeat. Gastrointestinal: Patient denies any abdominal pain, nausea, vomiting or incontinence of stool. Genitourinary: Patient denies any incontinence of urine. Musculoskeletal: Patient denies any back pain and has no pain or weakness to the extremities. Neurologic: Patient had a headache earlier which has resolved. He denies any dizziness, numbness or tingling. (Jose Hair) Exam Results Vital Signs Date Time Temp Pulse Resp B/P Pulse Ox O2 Delivery O2 Flow Rate FiO2 12/08/16 06:00 81 12/08/16 04:00 97.8 21 100/68 98 12/07/16 19:21 Room Air Intake and Output 12/07/16 12/07/16 12/08/16 08:00 16:00 00:00 Intake Total 0 ml Balance 0 ml (Jose Hair) Physical Examination GENERAL: The patient is awake & alert and readily interacts, no apparent distress, affect normal. SKIN: Mild laceration and abrasions to the left hand and forearm w/o any active drainage, erythema or streaking. HEENT: Left facial & infraorbital ecchymosis w/mild swelling minimally TTP. PERRLA, EOMI. MMM & pink. No otorrhea or rhinorrhea. NECK: Midline cervical spine NTTP, neck supple, no JVD, trachea midline. CARDIOVASCULAR: S1S2 w/irregularly irregular heart rate, radial & pedal pulses 2 + bilaterally, cap refill < 2 sec, bilateral pedal edema w/vascular skin changes noted. Monitor appears to be atrial fibrillation w/controlled ventricular response & intermittent PVCs. RESPIRATORY: CTAB w/o W/R/R, equal excursion, nonlaboured, on RA. GASTROINTESTINAL: Abdomen soft, nontender, positive bowel sounds. MUSCULOSKELETAL: JAMES w/o difficulty, no evident deformity or clubbing. NEUROLOGICAL: AAO x1 (person only), per patient is at his baseline mental status. Speech is clear and readily converses. Follows simple commands w/o difficulty. CN II-XII appear grossly intact. Sensation intact to light touch to all extremities. Motor strength 5/5 to all major flexion & extension muscle groups. (Jose Hair) Lab, Micro, Other Results Allergies Coded Allergies Type Severity Reaction Last Updated Verified No Known Allergies 12/07/16 No Recent Impressions Head CT 12/07/16 1610 Signed Impressions: Service Date/Time: November 16:48 - CONCLUSION: 1. Minimal acute subdural hemorrhage within the left high parietal region which likely is post traumatic. Clinical correlation is recommended. 2. Diffuse cerebral atrophy. 3. No acute infarct, midline shift or acute subdural/epidural hematoma. Sukh Mejia MD Cervical Spine CT 12/07/16 0000 Signed Impressions: Service Date/Time: November 16:48 - CONCLUSION: 1. No acute fracture or prevertebral soft tissue swelling. 2. Significant degenerative disc disease at C6-7, C7-T1 and T1-T2. 3. No bony spinal canal stenosis or significant neural foraminal narrowing. Sukh Mejia MD /27// 06:00 18:00 06:00 18:00 06:00 18:00 Intake Total 1081 ml Balance 1081 ml Intake Oral 240 ml IV Total 841 ml # Voids 1 Laboratory Tests Test 12/07/16 12/07/16 12/08/16 16:37 22:40 09:32 White Blood Count 6.7 TH/MM3 5.7 TH/MM3 Red Blood Count 5.44 MIL/MM3 5.45 MIL/MM3 Hemoglobin 16.1 GM/DL 16.4 GM/DL Hematocrit 49.4 % 49.9 % Mean Corpuscular Volume 90.9 FL 91.5 FL Mean Corpuscular Hemoglobin 29.6 PG 30.1 PG Mean Corpuscular Hemoglobin 32.6 % 32.9 % Concent Red Cell Distribution Width 14.9 % 15.2 % Platelet Count 127 TH/MM3 131 TH/MM3 Mean Platelet Volume 8.1 FL 8.2 FL Neutrophils (%) (Auto) 79.6 % 71.7 % Lymphocytes (%) (Auto) 8.1 % 15.2 % Monocytes (%) (Auto) 10.3 % 10.8 % Eosinophils (%) (Auto) 1.7 % 1.8 % Basophils (%) (Auto) 0.3 % 0.5 % Neutrophils # (Auto) 5.3 TH/MM3 4.0 TH/MM3 Lymphocytes # (Auto) 0.5 TH/MM3 0.9 TH/MM3 Monocytes # (Auto) 0.7 TH/MM3 0.6 TH/MM3 Eosinophils # (Auto) 0.1 TH/MM3 0.1 TH/MM3 Basophils # (Auto) 0.0 TH/MM3 0.0 TH/MM3 CBC Comment DIFF FINAL DIFF FINAL Differential Comment Prothrombin Time 11.9 SEC Prothromb Time International 1.1 RATIO Ratio Activated Partial 28.2 SEC Thromboplast Time Sodium Level 138 MEQ/L 137 MEQ/L Potassium Level 5.2 MEQ/L 4.1 MEQ/L Chloride Level 105 MEQ/L 105 MEQ/L Carbon Dioxide Level 25.1 MEQ/L 22.7 MEQ/L Anion Gap 8 MEQ/L 9 MEQ/L Blood Urea Nitrogen 23 MG/DL 20 MG/DL Creatinine 1.10 MG/DL 0.99 MG/DL Estimat Glomerular Filtration 65 ML/MIN 73 ML/MIN Rate Random Glucose 84 MG/DL 86 MG/DL Calcium Level 8.5 MG/DL 8.6 MG/DL Total Bilirubin 0.9 MG/DL 0.9 MG/DL Aspartate Amino Transf 32 U/L 18 U/L (AST/SGOT) Alanine Aminotransferase 22 U/L 19 U/L (ALT/SGPT) Alkaline Phosphatase 87 U/L 93 U/L Total Creatine Kinase 91 U/L Total Protein 6.3 GM/DL 6.3 GM/DL Albumin 3.2 GM/DL 3.2 GM/DL Nasal Screen MRSA (PCR) MRSA NOT DETECTED Phosphorus Level 2.6 MG/DL Magnesium Level 2.4 MG/DL Vital Signs Date Time Temp Pulse Resp B/P Pulse Ox O2 Delivery O2 Flow Rate FiO2 12/08/16 12:00 97.4 80 15 102/59 96 12/08/16 10:00 72 12/08/16 08:00 71 12/08/16 08:00 98.3 72 14 107/61 98 12/08/16 06:00 81 12/08/16 04:00 74 12/08/16 04:00 97.8 74 21 100/68 98 12/08/16 02:00 79 12/08/16 00:00 97.6 81 15 117/65 98 12/08/16 00:00 90 12/07/16 23:00 103 12/07/16 21:00 97.7 87 13 114/60 6 12/07/16 19:21 89 14 99 Room Air 12/07/16 19:20 89 16 119/71 99 Room Air 12/07/16 17:53 87 18 112/74 96 Room Air 12/07/16 16:08 100 18 107/72 97 Room Air 12/07/16 15:54 98.2 62 18 128/88 100 (Jose Hair) Medical Decision Making Impression and Plan Impression: 1. Mild traumatic brain injury 2. Left facial contusions 3. Atrial fibrillation. Patient is doing well and neurologically intact for self. Plan: Discussed plan of care with patient & . Discussed plan of care with Nursing. Neuro checks. Non-chemical DVT prophylaxis. Continue keep blood pressure within normal parameters. Physical therapy consult to assess gait and ambulation. Follow-up CT scan head today (Jose Hair) Attending Statement I have personally seen and examined the patient on the date of this note. Pertinent documentation and study results have been reviewed by the undersigned. I have personally developed the treatment plan and performed medical decision making. Agree with findings, exam, and treatment plan as noted above. Patient remains awake and alert. No focal neurologic deficit Remains with significant confusion. Speech is relatively clear Diminished judgment and insight Diminished recent and remote memory 12/08/16 CT scan head reviewed by the undersigned. There is partial resolution of previous relatively mild subarachnoid hemorrhage. No hydrocephalus or pneumocephalus or significant mass effect. Discussed with patient Stable for transfer to regular floor from neurosurgery standpoint. Continue therapy Monitor blood pressure-continue antihypertensive medications (Feng Sykes MD ) Jose Hair Dec 08, 2016 12:47 Feng Sykes MD Dec 08, 2016 23:05
--- NOTE | 2016-12-08 18:13 | RADRPT ---
EXAM DATE/TIME: 12/08/2016 17:41 [facility] COMPARISON: CT BRAIN W/O CONTRAST, December 07, 2016, 16:48. INDICATIONS : Follow up with subarachnoid hemorrhage. RADIATION DOSE: 56.77 CTDIvol (mGy) MEDICAL HISTORY : Dementia. Hypertension. SURGICAL HISTORY : None. ENCOUNTER: Subsequent ACUITY: 2 days PAIN SCALE: 3/10 LOCATION: Bilateral cranial TECHNIQUE: Multiple contiguous axial images were obtained of the head. Using automated exposure control and adj ustment of the mA and/or kV according to patient size, radiation dose was kept as low as reasonably a chievable to obtain optimal diagnostic quality images. DICOM format image data is available electro nically for review and comparison. FINDINGS: The previously seen subarachnoid hemorrhage on the left side has improved with slight subarachno id hemorrhage remaining in the left temporal and parietal lobes. There is no mass effect.CONCLUSION: Improvement in subarachnoid hemorrhage since the prior exam. Clare Reinoso MD on December 08, 2016 at 18:10 Board Certified Radiologist. This report was verified electronically.
[2016-12-09] VITALS (8 sets, daily range): BP systolic 115–148; BP diastolic 69–99; PULSE 81–121; RESP 16–27; TEMP 97.8–98.6; O2SAT 95–100
[2016-12-09] MEDS: CHLORHEXIDINE GLUCONATE 2 % 1 PACK (2 CLOTHS) TOP SCH (04:00)
[2016-12-09] MEDS: PIPERACIL-TAZO 4.5 GM PREMIX 100 ML IV SCH ×2 (05:00→09:13)
[2016-12-09] MEDS: VANCOMYCIN 1,500 MG/NS 500 ML IV SCH ×2 (05:02)
--- NOTE | 2016-12-09 06:16 | HHI.NSPN ---
History Chief Complaint: None Interval History Interval History 12/07: Pleasant 76-year-old male with a history of dementia who apparently was wandering in his neighborhood while his was at the grocery store. No definite trauma, but the patient has obvious abrasions to the left face and periorbital region. No history of seizure. No emesis reported. The patient denies any headaches dizziness vision problems pain which is numbness in the extremities. However he is noted to be a poor historian. He states that he may have fallen this evening. 12/08: The patient is awake and alert sitting in a chair when seen this afternoon. He has no complaints but did say he had a headache earlier which has resolved. His reports that he is at his baseline mental status 12/08: Patient easily arousable. He is conversive and has no new complaints. Exam Results Vital Signs Date Time Temp Pulse Resp B/P Pulse Ox O2 Delivery O2 Flow Rate FiO2 12/09/16 06:00 81 12/09/16 04:00 98.0 27 148/99 96 12/07/16 19:21 Room Air Intake and Output 12/08/16 12/08/16 12/09/16 08:00 16:00 00:00 Intake Total 1081 ml 1187 ml 731 ml Output Total 150 ml Balance 1081 ml 1187 ml 581 ml Physical Examination NEUROLOGICAL: AAO x1 (person only), per patient is at his baseline mental status. Speech is clear and readily converses. Follows simple commands w/o difficulty. CN II-XII appear grossly intact. Sensation intact to light touch to all extremities. Motor strength 5/5 to all major flexion & extension muscle groups. Lab, Micro, Other Results Last [address] 12/08/16 1000 Signed Impressions: Service Date/Time: Thursday, December 08, 2016 17:41 - CONCLUSION: Improvement in subarachnoid hemorrhage since the prior exam. Clare Reinoso MD Laboratory Tests Test 12/08/16 09:32 White Blood Count 5.7 Red Blood Count 5.45 Hemoglobin 16.4 Hematocrit 49.9 Mean Corpuscular Volume 91.5 Mean Corpuscular Hemoglobin 30.1 Mean Corpuscular Hemoglobin 32.9 Concent Red Cell Distribution Width 15.2 Platelet Count 131 Mean Platelet Volume 8.2 Neutrophils (%) (Auto) 71.7 Lymphocytes (%) (Auto) 15.2 Monocytes (%) (Auto) 10.8 Eosinophils (%) (Auto) 1.8 Basophils (%) (Auto) 0.5 Neutrophils # (Auto) 4.0 Lymphocytes # (Auto) 0.9 Monocytes # (Auto) 0.6 Eosinophils # (Auto) 0.1 Basophils # (Auto) 0.0 CBC Comment DIFF FINAL Differential Comment Sodium Level 137 Potassium Level 4.1 Chloride Level 105 Carbon Dioxide Level 22.7 Anion Gap 9 Blood Urea Nitrogen 20 Creatinine 0.99 Estimat Glomerular Filtration 73 Rate Random Glucose 86 Calcium Level 8.6 Phosphorus Level 2.6 Magnesium Level 2.4 Total Bilirubin 0.9 Aspartate Amino Transf 18 (AST/SGOT) Alanine Aminotransferase 19 (ALT/SGPT) Alkaline Phosphatase 93 Total Protein 6.3 Albumin 3.2 Date/Time Procedure Status Source Growth 12/08/16 09:32 Aerobic Blood Culture Received Blood Peripheral Pending 12/08/16 09:32 Anaerobic Blood Culture Received Blood Peripheral Pending Medical Decision Making Impression and Plan Impression: Closed head injury with traumatic subarachnoid hemorrhage. Follow-up CT scan showing resolution. . Plan: Patient may be transferred from ICU down to the floor and begin physical therapy at this time. Continue keep blood pressure within normal parameters. Rashawn Redding MD Dec 09, 2016 06:16
[2016-12-09] MEDS: SODIUM CHLOR 0.9% 1000 ML INJ 1,000 ML IV SCH (09:11)
[2016-12-09] MEDS: SODIUM CHLORIDE 0.9% FLUSH 10 ML FLUSH SCH ×2 (09:13→21:00)
[2016-12-09] MEDS: DOCUSATE SODIUM 50 MG/SENNA 8.6 MG TAB PO SCH (09:13)
[2016-12-09] MEDS: FAMOTIDINE 20 MG/2 ML VIAL IV PUSH SCH ×2 (09:13→22:55)
--- NOTE | 2016-12-09 10:40 | HHI.PR ---
Subjective Remarks Follow-up subdural hematoma 12/09/16-patient seen and examined alert but not oriented to place ,date and time. Very pleasant. Vitals stable. Objective Vitals Vital Signs Date Time Temp Pulse Resp B/P Pulse Ox O2 Delivery O2 Flow Rate FiO2 12/09/16 08:12 97.9 84 18 142/91 97 12/09/16 06:00 81 12/09/16 04:00 98.0 103 27 148/99 96 12/09/16 04:00 101 12/09/16 02:00 93 12/09/16 00:00 90 12/09/16 00:00 98.4 87 16 115/69 96 12/08/16 22:00 80 12/08/16 20:00 76 12/08/16 20:00 98.0 93 25 120/63 93 12/08/16 18:00 80 12/08/16 16:00 97.9 80 14 105/56 94 12/08/16 16:00 80 12/08/16 14:00 88 12/08/16 12:00 80 12/08/16 12:00 97.4 80 15 102/59 96 I/O 12/08/16 12/08/16 12/08/16 12/09/16 12/09/16 12/09/16 06:59 14:59 22:59 06:59 14:59 22:59 Intake Total 1081 ml 1187 ml 731 ml 1019 ml Output Total 150 ml 725 ml Balance 1081 ml 1187 ml 581 ml 294 ml Intake Oral 240 ml 300 ml 240 ml 240 ml IV Total 841 ml 887 ml 491 ml 779 ml Output Urine Total 150 ml 725 ml # Voids 1 1 # Bowel Movements 1 3 Result Diagram: 12/08/16 0932 12/08/16 0932 Imaging Last Impressions Head CT 12/08/16 1000 Signed Impressions: Service Date/Time: Thursday, December 08, 2016 17:41 - CONCLUSION: Improvement in subarachnoid hemorrhage since the prior exam. Clare Reinoso MD Cervical Spine CT 12/07/16 0000 Signed Impressions: Service Date/Time: November 16:48 - CONCLUSION: 1. No acute fracture or prevertebral soft tissue swelling. 2. Significant degenerative disc disease at C6-7, C7-T1 and T1-T2. 3. No bony spinal canal stenosis or significant neural foraminal narrowing. Sukh Mejia MD Objective Remarks GENERAL: NAD SKIN: Warm and dry. HEAD: Normocephalic. EYES: No scleral icterus. No injection or drainage. NECK: Supple, trachea midline. No JVD or lymphadenopathy. CARDIOVASCULAR: Regular rate and rhythm without murmurs, gallops, or rubs. RESPIRATORY: Breath sounds equal bilaterally. No accessory muscle use. GASTROINTESTINAL: Abdomen soft, non-tender, nondistended. MUSCULOSKELETAL: No cyanosis, or edema. BACK: Nontender without obvious deformity. No CVA tenderness. Procedures none A/P Problem List: (1) Intracranial hemorrhage ICD Code: I62.9 Status: Acute Assessment and Plan 76-year-old man with Small subdural hematoma - No intervention indicated - Repeat CT head with improving subdural hematoma - Neurosurgery appreciated - Continue PT and OT Cellulitis - Currently on Vancomycin and Zosyn, however will discontinue Zosyn pending culture report Alzheimer dementia - Continue Aricept DVT GI prophylaxis - Avoid Teds SCDs - No pharmacological DVT prophylaxis due to ICH - Salas Holcomb MD Dec 09, 2016 10:40
[2016-12-09] MEDS ORDERED: PHARMACY ORDERED LAB ONE (20:45)
[2016-12-10] MEDS: VANCOMYCIN 1,500 MG/NS 500 ML IV SCH ×2 (00:08)
[2016-12-10 00:46] VITALS: BP 153/89; PULSE 109; RESP 18; TEMP 97.9; O2SAT 100
[2016-12-10] MEDS: CHLORHEXIDINE GLUCONATE 2 % 1 PACK (2 CLOTHS) TOP SCH (03:04)
[2016-12-10 04:00] VITALS: BP 142/93; PULSE 72; RESP 18; TEMP 97.3; O2SAT 94
[2016-12-10] MEDS: FAMOTIDINE 20 MG/2 ML VIAL IV PUSH SCH ×2 (08:28→22:30)
[2016-12-10] MEDS: SODIUM CHLORIDE 0.9% FLUSH 10 ML FLUSH SCH ×2 (08:28→22:32)
[2016-12-10 08:33] VITALS: BP 138/81; PULSE 85; RESP 20; TEMP 97.5; O2SAT 96
--- NOTE | 2016-12-10 11:49 | HHI.NSPN ---
History Chief Complaint: None Interval History Interval History 12/07: Pleasant 76-year-old male with a history of dementia who apparently was wandering in his neighborhood while his was at the grocery store. No definite trauma, but the patient has obvious abrasions to the left face and periorbital region. No history of seizure. No emesis reported. The patient denies any headaches dizziness vision problems pain which is numbness in the extremities. However he is noted to be a poor historian. He states that he may have fallen this evening. 12/08: The patient is awake and alert sitting in a chair when seen this afternoon. He has no complaints but did say he had a headache earlier which has resolved. His reports that he is at his baseline mental status 12/09: Patient easily arousable. He is conversive and has no new complaints. 12/10: Patient remains awake and alert. He is conversive and has no complaints of headache. was questioning whether or not the patient has been worked up for diagnosis of NPH as he does have dementia and gait abnormality. He has no history of urinary incontinence however. His CT scan does show ventricular megaly however he has severe cortical atrophy as well. Exam Results Vital Signs Date Time Temp Pulse Resp B/P Pulse Ox O2 Delivery O2 Flow Rate FiO2 12/10/16 09:00 Room Air 12/10/16 08:33 97.5 85 20 138/81 96 Intake and Output 12/09/16 12/09/16 12/10/16 08:00 16:00 00:00 Intake Total 1019 ml 480 ml Output Total 725 ml Balance 294 ml 480 ml Physical Examination NEUROLOGICAL: Awake and alert. Speech is clear and readily converses. Follows simple commands w/o difficulty. CN II-XII appear grossly intact. Sensation intact to light touch to all extremities. Motor strength 5/5 to all major flexion & extension muscle groups. Lab, Micro, Other Results Laboratory Tests Test 12/09/16 23:00 Vancomycin Level Trough 10.1 Date/Time Procedure Status Source Growth 12/08/16 09:32 Aerobic Blood Culture - Preliminary Resulted Blood Peripheral NO GROWTH IN 2 DAYS 12/08/16 09:32 Anaerobic Blood Culture - Preliminary Resulted Blood Peripheral NO GROWTH IN 2 DAYS Medical Decision Making Impression and Plan Impression: Closed head injury with traumatic subarachnoid hemorrhage. Follow-up CT scan showing resolution. Stable neurological examination. . Plan: No indication for neurosurgical intervention at this time. We will have 's service discuss possible workup for NPH tomorrow. Rashawn Redding MD Dec 10, 2016 11:49
[2016-12-10 12:18] VITALS: BP 138/80; PULSE 98; RESP 20; TEMP 97.9; O2SAT 96
--- NOTE | 2016-12-10 12:48 | HHI.PR ---
Subjective Remarks Follow-up subdural hematoma 12/09/16-patient seen and examined alert but not oriented to place ,date and time. Very pleasant. Vitals stable. 12/10/16-patient seen and examined, pleasantly confused in no acute event overnight. by the bedside. Case discussed with neurosurgery at the bedside. Objective Vitals Vital Signs Date Time Temp Pulse Resp B/P Pulse Ox O2 Delivery O2 Flow Rate FiO2 12/10/16 12:18 97.9 98 20 138/80 96 12/10/16 09:00 Room Air 12/10/16 08:33 97.5 85 20 138/81 96 12/10/16 04:00 97.3 72 18 142/93 94 12/10/16 00:46 97.9 109 18 153/89 100 12/09/16 21:16 98.6 121 18 131/78 100 12/09/16 16:25 98.0 87 18 144/89 95 I/O 12/09/16 12/09/16 12/09/16 12/10/16 12/10/16 12/10/16 07:00 15:00 23:00 07:00 15:00 23:00 Intake Total 1019 ml 480 ml Output Total 725 ml Balance 294 ml 480 ml Intake Oral 240 ml 480 ml IV Total 779 ml Output Urine Total 725 ml # Voids 2 # Bowel Movements 3 1 Result Diagram: 12/08/1632 12/08/1632 Objective Remarks GENERAL: NAD SKIN: Warm and dry. HEAD: Normocephalic. EYES: No scleral icterus. No injection or drainage. NECK: Supple, trachea midline. No JVD or lymphadenopathy. CARDIOVASCULAR: Regular rate and rhythm without murmurs, gallops, or rubs. RESPIRATORY: Breath sounds equal bilaterally. No accessory muscle use. GASTROINTESTINAL: Abdomen soft, non-tender, nondistended. MUSCULOSKELETAL: No cyanosis, or edema. Dressing over wounds right lower extremity BACK: Nontender without obvious deformity. No CVA tenderness. Procedures none A/P Problem List: (1) Intracranial hemorrhage ICD Code: I62.9 Status: Acute Assessment and Plan 76-year-old man with Small subdural hematoma - No intervention indicated - Repeat CT head with improving subdural hematoma - Neurosurgery appreciated and will consider workup for NPH 12/11/16 - Continue PT and OT Cellulitis right lower extremity - Currently on Vancomycin -Consult wound care Alzheimer dementia - Continue Aricept DVT GI prophylaxis - Avoid Teds SCDs - No pharmacological DVT prophylaxis due to ICH - Salas Holcomb MD Dec 10, 2016 12:48
[2016-12-10 16:25] VITALS: BP 129/79; PULSE 98; RESP 18; TEMP 98; O2SAT 95
[2016-12-10 20:00] VITALS: BP 135/75; PULSE 97; RESP 18; TEMP 98.3; O2SAT 96
[2016-12-10] MEDS: VANCOMYCIN INJ 1,750 MG in SODIUM CHLORID 0.9% 500 ML INJ 500 ML IV SCH (22:30)
[2016-12-11] VITALS: BP 135/80; PULSE 105; RESP 18; TEMP 97.6; O2SAT 94
[2016-12-11 04:00] VITALS: BP 148/96; PULSE 108; RESP 18; TEMP 97.6; O2SAT 97
[2016-12-11] MEDS: CHLORHEXIDINE GLUCONATE 2 % 1 PACK (2 CLOTHS) TOP SCH ×2 (04:00→21:47)
[2016-12-11 08:00] VITALS: BP 140/75; PULSE 84; RESP 18; TEMP 96.7; O2SAT 95
[2016-12-11] MEDS: FAMOTIDINE 20 MG/2 ML VIAL IV PUSH SCH ×2 (08:56→21:46)
[2016-12-11] MEDS: SODIUM CHLORIDE 0.9% FLUSH 10 ML FLUSH SCH ×2 (08:56→21:47)
--- NOTE | 2016-12-11 10:18 | HHI.NSPN ---
(Jose Hair) History Chief Complaint: None (Jose Hair) Interval History 12/07: Pleasant 76-year-old male with a history of dementia who apparently was wandering in his neighborhood while his was at the grocery store. No definite trauma, but the patient has obvious abrasions to the left face and periorbital region. No history of seizure. No emesis reported. The patient denies any headaches dizziness vision problems pain which is numbness in the extremities. However he is noted to be a poor historian. He states that he may have fallen this evening. 12/08: The patient is awake and alert sitting in a chair when seen this afternoon. He has no complaints but did say he had a headache earlier which has resolved. His reports that he is at his baseline mental status. 12/09: Patient easily arousable. He is conversive and has no new complaints. 12/10: Patient remains awake and alert. He is conversive and has no complaints of headache. was questioning whether or not the patient has been worked up for diagnosis of NPH as he does have dementia and gait abnormality. He has no history of urinary incontinence however. His CT scan does show ventricular megaly however he has severe cortical atrophy as well. 12/11: The patient is awake and alert and interacts readily. He has no complaints when seen. A sitter is in the room with the patient for his safety. (Jose Hair) System Review Comments Constitutional: Patient denies any fever or chills. HEENT: Patient denies any facial pain or visual or hearing problems. Neck: Patient denies any neck pain. Respiratory: Patient denies any shortness of breath or productive cough. Cardiovascular: Patient denies any chest pain, palpitations or irregular heartbeat. Gastrointestinal: Patient denies any abdominal pain, nausea, vomiting or incontinence of stool. Genitourinary: Patient denies any incontinence of urine. Musculoskeletal: Patient denies any back pain and has no pain or weakness to the extremities. Neurologic: Patient denies any headache, dizziness, numbness or tingling. ( Jose Hair) Exam Results Vital Signs Date Time Temp Pulse Resp B/P Pulse Ox O2 Delivery O2 Flow Rate FiO2 12/11/16 08:00 96.7 84 18 140/75 95 12/10/16 21:00 Room Air Intake and Output 12/10/16 12/10/16 12/11/16 08:00 16:00 00:00 Intake Total 240 ml Balance 240 ml (Jose Hair) Physical Examination GENERAL: The patient is awake & alert and readily interacts, no apparent distress, affect normal. SKIN: Mild laceration and abrasions to the left hand and forearm w/o any active drainage, erythema or streaking. HEENT: Left facial & infraorbital ecchymosis w/resolved swelling NTTP. PERRLA, EOMI. NECK: Midline cervical spine NTTP, neck supple, no JVD, trachea midline. CARDIOVASCULAR: S1S2 w/irregularly irregular heart rate, radial & pedal pulses 2 + bilaterally, cap refill < 2 sec, bilateral pedal edema w/vascular skin changes noted. RESPIRATORY: CTAB w/o W/R/R, equal excursion, nonlaboured, on RA. GASTROINTESTINAL: Abdomen soft, nontender, positive bowel sounds. MUSCULOSKELETAL: JAMES w/o difficulty, no evident deformity or clubbing. NEUROLOGICAL: AAO x1 (name only but did know month & day of but not year). Speech is clear and readily converses but is confused as to his situation & what is happening. Follows simple commands w/o difficulty. Sensation intact to light touch to all extremities. Motor strength 5/5 to all major flexion & extension muscle groups. (Jose Hair) Medical Decision Making Impression and Plan Impression: 1. Mild traumatic brain injury 2. Left facial contusions 3. Atrial fibrillation. Patient continues to do well and remains neurologically intact for self. Plan: Neuro checks. Non-chemical DVT prophylaxis. Continue keep blood pressure within normal parameters. Physical therapy consult to assess gait and ambulation. (Jose Hair) Attending Statement I have personally seen and examined the patient on the date of this note. Pertinent documentation and study results have been reviewed by the undersigned. I have personally developed the treatment plan and performed medical decision making. Agree with findings, exam, and treatment plan as noted above. On my examination today, he is sitting up in a chair. Remains awake and alert. Remains moderately confused. He cannot tell me where he is or where he lives. He smiles pleasantly when questions are asked of him. Speech is somewhat slow but clear. Extraocular movements intact Facial motor movements symmetric Sensation to light touch and motor function intact all extremities Stable from a neurosurgical standpoint. Moderate baseline dementia They be discharged from neurosurgery standpoint with follow-up as needed (Feng Sykes MD) Jose Hair Dec 11, 2016 10:18 Feng Sykes MD Dec 11, 2016 20:03
[2016-12-11 12:00] VITALS: BP 129/79; PULSE 92; RESP 18; TEMP 97.7; O2SAT 98
--- NOTE | 2016-12-11 12:18 | HHI.PR ---
Subjective Remarks Follow-up subdural hematoma 12/09/16-patient seen and examined alert but not oriented to place ,date and time. Very pleasant. Vitals stable. 12/10/16-patient seen and examined, pleasantly confused in no acute event overnight. by the bedside. Case discussed with neurosurgery at the bedside. 12/11/16-patient seen and examined, no acute event overnight. Stable and pleasantly confused. Sitter by the bedside Objective Vitals Vital Signs Date Time Temp Pulse Resp B/P Pulse Ox O2 Delivery O2 Flow Rate FiO2 12/11/16 12:00 97.7 92 18 129/79 98 12/11/16 08:01 95 Room Air 12/11/16 08:00 96.7 84 18 140/75 95 12/11/16 04:00 97.6 108 18 148/96 97 12/11/16 00:00 97.6 105 18 135/80 94 12/10/16 21:00 Room Air 12/10/16 20:00 98.3 97 18 135/75 96 12/10/16 16:25 98.0 98 18 129/79 95 12/10/16 12:18 97.9 98 20 138/80 96 I/O 12/10/16 12/10/16 12/10/16 12/11/16 12/11/16 12/11/16 06:59 14:59 22:59 06:59 14:59 22:59 Intake Total 240 ml Balance 240 ml Intake Oral 240 ml # Voids 3 # Bowel Movements 1 Result Diagram: 12/08/16 0932 12/11/16 0841 Imaging Last Impressions Head CT 12/08/16 1000 Signed Impressions: Service Date/Time: Thursday, December 08, 2016 17:41 - CONCLUSION: Improvement in subarachnoid hemorrhage since the prior exam. Clare Reinoso MD Cervical Spine CT 12/07/16 0000 Signed Impressions: Service Date/Time: November 16:48 - CONCLUSION: 1. No acute fracture or prevertebral soft tissue swelling. 2. Significant degenerative disc disease at C6-7, C7-T1 and T1-T2. 3. No bony spinal canal stenosis or significant neural foraminal narrowing. Sukh Mjeia MD Objective Remarks GENERAL: NAD SKIN: Warm and dry. HEAD: Normocephalic. EYES: No scleral icterus. No injection or drainage. NECK: Supple, trachea midline. No JVD or lymphadenopathy. CARDIOVASCULAR: Regular rate and rhythm without murmurs, gallops, or rubs. RESPIRATORY: Breath sounds equal bilaterally. No accessory muscle use. GASTROINTESTINAL: Abdomen soft, non-tender, nondistended. MUSCULOSKELETAL: No cyanosis, or edema. Dressing over blisters right lower extremity BACK: Nontender without obvious deformity. No CVA tenderness. Procedures none A/P Problem List: (1) Intracranial hemorrhage ICD Code: I62.9 Status: Acute Assessment and Plan 76-year-old man with Small subdural hematoma - No intervention indicated - Repeat CT head with improving subdural hematoma - Neurosurgery appreciated and if no need for workup for NPH, patient will then be discharged pending clearance from neurosurgery - Continue PT and OT Cellulitis right lower extremity - Currently on Vancomycin -Consult wound care pending Alzheimer dementia - Continue Aricept DVT GI prophylaxis - Avoid Teds SCDs - No pharmacological DVT prophylaxis due to ICH - Pepcid Discharge Planning Discharge pending clearance from neurosurgery Salas Samson MD Dec 11, 2016 12:18
--- NOTE | 2016-12-11 12:19 | HHI.FF ---
Face to Face Verification Diagnosis: (1) Intracranial hemorrhage (2) Cellulitis Physical Therapy Order: Evaluate and Treat Home Health Nursing Order: Signs/symptoms of disease process I have seen patient Lester Medina on 12/11/16. My clinical findings support the need for the requested home health care services because: Deconditioned w/ increased weakness I certify that my clinical findings support that this patient is homebound because: Poor cardiac reserve Salas Samson MD Dec 11, 2016 12:18
[2016-12-11 16:00] VITALS: BP 136/70; PULSE 84; RESP 18; TEMP 96.6; O2SAT 96
--- NOTE | 2016-12-11 18:49 | PD.WCN.NOT ---
Wound Consult Description: Consult for WOUND MANAGEMENT of RLE per Dr Samson Communicated with: Gela RN Dr Nicolas Recommendation: DAILY: Apply single layer Xeroform to open wounds only on right dorsal foot after cleansing with NS and gauze. Cover with 4x4's and secure with rolled gauze Additional Information: Patient seen on [facility] for right foot wound evaluation. Optifoam gentle removed to reveal unroofed bulla noted to distal right dorsal foot of partial thickness skin loss with ~15% dried blood not friable, and ~85% pink tissue with no active drainage noted when cleansed with NS and gauze. Wound measures 3cm x 2.6cm x <0.1cm. Single layer Xeroform was applied to open wound only, covered with 4x4 and secured with rolled gauze. Mid dorsal right foot is noted with a partial thickness deflated bulla measuring 1.9cm x 1.9cm x <0.1cm with no active drainage. Patients own skin is covering ~80% of the wound leaving ~20 % open with 100% pink moist tissue. Wound was cleansed with Ns and gauze. Single layer Xeroform was applied over entire wound bed and covered with a 4x4 and secured with rolled gauze. Wound on medial lower ankle is a deflated bulla with patient own skin covering 100% of the wound bed making this wound dry and no longer open. Closed wound was covered with dry cover and secured with rolled gauze for comfort and protection. Patient is requesting Silvadene, says she has been putting it on at home per their PCP Dr Peñaloza at [facility] in [place]. Notified and informed physician of patient's request. Cynthia Jeffrey [facility] Dec 11, 2016 18:49
[2016-12-11 20:00] VITALS: BP 132/74; PULSE 100; RESP 20; TEMP 98; O2SAT 96
[2016-12-11] MEDS: VANCOMYCIN INJ 1,750 MG in SODIUM CHLORID 0.9% 500 ML INJ 500 ML IV SCH (21:47)
[2016-12-12] VITALS: BP 133/83; PULSE 78; RESP 18; TEMP 97.4; O2SAT 97
[2016-12-12 04:00] VITALS: BP 121/80; PULSE 82; RESP 16; TEMP 98.6; O2SAT 96
[2016-12-12 08:04] VITALS: BP 139/82; PULSE 87; RESP 18; TEMP 97.5; O2SAT 95
[2016-12-12] MEDS: FAMOTIDINE 20 MG/2 ML VIAL IV PUSH SCH ×2 (09:53→20:42)
[2016-12-12] MEDS: SODIUM CHLORIDE 0.9% FLUSH 10 ML FLUSH SCH ×2 (09:54→20:40)
--- NOTE | 2016-12-12 10:11 | HHI.PR ---
Subjective Remarks in no acute distress. denies pain. d/w the RN. Objective Vitals Vital Signs Date Time Temp Pulse Resp B/P Pulse Ox O2 Delivery O2 Flow Rate FiO2 12/12/16 08:04 97.5 87 18 139/82 95 12/12/16 04:00 98.6 82 16 121/80 96 12/12/16 00:00 97.4 78 18 133/83 97 12/11/16 20:30 Room Air 12/11/16 20:00 98.0 100 20 132/74 96 12/11/16 16:00 96.6 84 18 136/70 96 12/11/16 12:00 97.7 92 18 129/79 98 I/O 12/11/16 12/11/16 12/11/16 12/12/16 12/12/16 12/12/16 07:00 15:00 23:00 07:00 15:00 23:00 Intake Total 480 ml 250 ml Output Total 3 ml 1 ml Balance 480 ml -3 ml 249 ml Intake Oral 480 ml IV Total 250 ml Output Urine Total 2 ml 1 ml Stool Total 1 ml # Voids 3 # Bowel Movements 0 Result Diagram: 12/08/16 0932 12/11/16 0841 Imaging Last Impressions Head CT 12/08/16 1000 Signed Impressions: Service Date/Time: Thursday, December 08, 2016 17:41 - CONCLUSION: Improvement in subarachnoid hemorrhage since the prior exam. Clare Reinoso MD Cervical Spine CT 12/07/16 0000 Signed Impressions: Service Date/Time: November 16:48 - CONCLUSION: 1. No acute fracture or prevertebral soft tissue swelling. 2. Significant degenerative disc disease at C6-7, C7-T1 and T1-T2. 3. No bony spinal canal stenosis or significant neural foraminal narrowing. Sukh Mejia MD Objective Remarks GENERAL: This is a well-nourished, well-developed patient, in no apparent distress. CARDIOVASCULAR: Regular rate and regular rhythm without murmurs, gallops, or rubs. RESPIRATORY: Clear to auscultation. Breath sounds equal bilaterally. No wheezes , rales, or rhonchi. GASTROINTESTINAL: Abdomen soft, non-tender, nondistended. Normal, active bowel sounds MUSCULOSKELETAL: Extremities without clubbing, cyanosis, or edema. NEURO: awake and alert,not oriented to place or time Procedures none Medications and IVs Current Medications IV Flush 2 ml 2 ml UNSCH PRN IV FLUSH FLUSH AFTER USING IV ACCESS; Start at 16:15; Stop 12/07/16 at 20:36; Status DC Sodium Chloride (NS 1000 ml Inj) 1,000 ml @ 84 mls/hr [id number] IV Last administered on 12/09/16 09:11; Start 12/07/16 at 21:00; Stop 12/09/16 at 10:41 ; Status DC Sodium Chloride (NS Flush) 2 ml UNSCH PRN .XX FLUSH AFTER USING IV ACCESS; Start 12/07/16 at 20:30 Sodium Chloride (NS Flush) 2 ml BID .XX Last administered on 12/11/16 21:47; Start 12/07/16 at 21:00 Acetaminophen (Tylenol) 650 mg Q6H PRN PO PAIN 1-10 AND/OR FEVER >101F; Start 12/07/16 at 20:30 Famotidine (Pepcid Inj) 20 mg Q12HR IV PUSH Last administered on 12/11/16 21: 46; Start 12/07/16 at 21:00 Ondansetron HCl (Zofran Inj) 4 mg Q6H PRN IV NAUSEA OR VOMITING; Start at 20:30 Albuterol/ Ipratropium (Duoneb Neb) 1 ampule Q2HR NEB PRN INH WHEEZING; Start 12/07/16 at 20:30 Miscellaneous Information 1 Q361D XX ; Start 12/07/16 at 20:30 Chlorhexidine Gluconate (Chlorhexidine 2% Cloth) 3 pack Taper DAILY@04 TOP Last administered on 12/09/16 04:00; Start 12/08/16 at 04:00; Stop 12/04/17 at 03:59 Chlorhexidine Gluconate (Chlorhexidine 2% Cloth) 3 pack UNSCH PRN TOP HYGIENIC CARE; Start 12/07/16 at 20:30 Senna/Docusate Sodium (Pastora-Colace) 1 tab BID PO Last administered on 09:13; Start 12/07/16 at 21:00; Stop 12/09/16 at 10:38; Status DC Magnesium Hydroxide (Milk Of Magnjaswinder Liq) 30 ml Q12H PRN PO MILD - MODERATE CONSTIPATION; Start 12/07/16 at 20:30 Sennosides (Senokot) 17.2 mg Q12H PRN PO MODERATE - SEVERE CONSTIPATION; Start 12/07/16 at 20:30; Stop 12/09/16 at 10:38; Status DC Bisacodyl (Dulcolax Supp) 10 mg DAILY PRN RECTAL SEVERE CONSITIPATION; Start at 20:30 Lactulose 30 ml 30 ml DAILY PRN PO SEVERE CONSITIPATION; Start 12/07/16 at 20: 30; Stop 12/09/16 at 10:38; Status DC Piperacillin Sod/ Tazobactam Sod 100 ml @ 200 mls/hr Q6H IV Last administered on 12/09/16 09:13; Start 12/07/16 at 21:00; Stop 12/09/16 at 10:41; Status DC Vancomycin HCl 1000 mg/Sodium Chloride 250 ml @ 125 mls/hr ONCE ONCE IV Last administered on 12/07/16 23:33; Start 12/07/16 at 21:00; Stop 12/07/16 at 22:59 ; Status DC Pharmacy Profile Note 0 ml @ 0 mls/hr UNSCH OTHER ; Start 12/07/16 at 20:30 Vancomycin HCl/ Sodium Chloride (Vancomycin Inj/ NS 500 ml Inj) 515 ml @ 257.5 mls/ hr Q18H IV Last administered on 12/10/16 00:08; Start 12/08/16 at 09:00; Stop 12/10/16 at 09:31; Status DC Miscellaneous Information SPECIFIC LAB TO BE DRAWN:VANCO TROUGH DATE TO BE [email or web address] ONCE ONCE .XX Last administered on 12/09/16 20:45; Start 12/09/16 at 20 :45; Stop 12/09/16 at 20:46; Status DC Vancomycin HCl/ Sodium Chloride (Vancomycin Inj/ NS 500 ml Inj) 517.5 ml @ 250 mls/hr Q24H IV Last administered on 12/11/16 21:47; Start 12/10/16 at 21:00 Miscellaneous Information SPECIFIC LAB TO BE . ONCE ONCE .XX ; Start at 20:45; Stop 12/13/16 at 20:46 A/P Assessment and Plan Small subdural hematoma - No intervention indicated - Repeat CT head with improving subdural hematoma - Neurosurgery f/u appreciated and cleared for discharge. - Continue PT and OT Cellulitis right lower extremity -cultures negative - switch to Keflex -Consult wound care pending Alzheimer dementia - Continue Aricept DVT GI prophylaxis - Avoid Teds SCDs - No pharmacological DVT prophylaxis due to ICH - Pepcid Discharge Planning d/w the regarding the discharge planning; the agreed with rehab. discharge within the next 24 hrs- SNF- d/w the RN and case management. Tamiko Nicolas MD Dec 12, 2016 10:11
[2016-12-12] MEDS ORDERED: CEPH500C PO (10:17)
--- NOTE | 2016-12-12 10:18 | HHI.DCPOC ---
Discharge Care Plan Diagnosis: (1) Intracranial hemorrhage Your Health Problems Are: Bleeding Tendency Goals to Promote Your Health * To prevent worsening of your condition and complications * To maintain your health at the optimal level Directions to Meet Your Goals Take your medications as prescribed Follow your dietary instruction Follow activity as directed Keep your appointments as scheduled Take your immunizations and boosters as scheduled If your symptoms worsen call your PCP, if no PCP go to Urgent Care Center or Emergency Room Smoking is Dangerous to Your Health. Avoid second hand smoke Call the 24-hour hour crisis hotline for domestic abuse at Tamiko Nicolas MD Dec 12, 2016 10:18
[2016-12-12 12:09] VITALS: BP 125/76; PULSE 76; RESP 18; TEMP 97.2; O2SAT 95
--- NOTE | 2016-12-12 13:33 | PD.HHIRCNE ---
Patient History Record/History Review Reason for Referral: The patient is a 76 year old right handed male status post traumatic injury sustained on 12/07/2016. Apparently, the patient, who has a history of major neurocognitive disorder related to Alzheimer's disease (formerly known as Alzheimer's related dementia), eloped from his home and was found wandering the neighborhood, with injuries that appeared consistent with a fall and sustaining minimal acute SDH within the left parietal region. Head CT was significant for ventriculomegaly with severe cortical atrophy. He was admitted to [facility] on 12/07/2016, and is considered medically stable yet confused. He was referred for baseline neurobehavioral status examination to assess cognitive, behavioral and emotional aspects of the injury and to provide treatment recommendations. Neuropsych Precautions: Severe neurocognitive deficits Past Surgical/Medical History Major surgery in last 100 days: Unknown Hx Anesthesia Reactions: No Hx Falls: Yes Hypertension (High Blood Press: Yes Hx of Eye Probl: Yes (Surgical procedure ) Hx of Cataracts: Bilateral Hx of Hearing or Ear Problems: No Blood Transfusion History Will receive Blood /Blood prod: Yes Medication Active Medications Miscellaneous Information SPECIFIC LAB TO BE ... ONCE ONCE .XX; Start at 20:45; Stop 12/13/16 at 20:46 Mental Status Assessment Orientation: oriented to Self, disoriented to Place, disoriented to Time, disoriented to Situation Mental Status: WFL: Language/Interactions, Impaired: Thought processing, Attention, Learning/Memory, Problem-Solving Observation The patient is alert but oriented only to person. He was not oriented to place , time or circumstances surrounding the reason for hospitalization. In terms of attention skills, the patient was unable to remain on task or remember instructions greater than basic. In terms of memory functioning, the patient was unable to remember any of three words after a brief period of time. The patient initiated spontaneous conversation. Speech was characterized by adequate prosody, grammar, articulation, volume and rate. Basic naming skills were intact. Language repetition skills were intact. The patients comprehensions for basic one- and two-stage commands were intact but not for more complex instructions. Basic verbal abstraction and problem-solving skills were not intact. The patient appears to posses impaired insight and awareness into their situation and within the limits of this brief evaluation, poor judgment. Impression Moderate to severe neurocognitive deficits Adjustment/Coping Assessment Adjustment/Coping: None: Depression, Anxiety, Pain, Apathy, Severe: Awareness , Insight Affect: Full Range Observation The patients thought content was free from suicidal, homicidal or paranoid ideation, and the patients thought processes were tangential as related to his primary memory disorder. The patients mood was euthymic, and his affect was stable and appropriate. LTG Status: Deferred STG Status: Deferred Team Members: Neuropsychologist Behavior Assessment Agitation: None Treatment Engagement: Average Observation Behaviorally, the patient demonstrated no signs of agitation, impulsivity or disinhibition. There was no remarkable evidence of a formal thought disorder or psychosis. LTG - Status: Deferred STG Status: Deferred Team Members: Neuropsychologist Diagnosis/Discharge Plan Impression This is a 76 year old man with past medical history of major neurocognitive disorder due to Alzheimer's disease, whose neuropsychological profile is consistent with this diagnosis, to include moderate to severe impairments of attention, memory and learning, and complex problem solving. He exhibits diminished insight, awareness and judgment. While his neuroimaging has demonstrated subtle findings of SDH, overwhelmingly his neurocognitive deficits are related to his Alzheimer's condition, and as such his prognosis for improvement from his present state are limited, as he is essentially at neurocognitive baseline. Diagnosis: (1) Major neurocognitive disorder due to Alzheimer's disease, probable, without behavioral disturbance Status: Acute Maximizing acute care outcome It is recommended that the patient be monitored for ongoing issues of behavioral impulsivity related to his major neurocognitive disorder. This patients neuropathological challenges may limit their rehabilitation potential going forward, and these challenges will require specialized therapeutic skills to maximize outcome. Presently, he is very compliant and as such no increased level of supervision is required in his present hospital environment. At home, however, he will require ongoing supervision given the severity of his underlying neurocognitive disorder. Concerning pharmacological management of his major neurocognitive disorder, consideration is recommended for pharmacological agents that may slow the progression of his memory disorder, unless medically contraindicated. It is understood that Aricept caused the patient GI upset, and as such perhaps [place] patch may be helpful, unless of course it produces the same adverse effects that Aricept caused the patient. Discharge Planning Anticipated Problems Ongoing areas of concern will include behavioral impulsivity, lack of insight and judgment, which is not expected to improve with time or treatment. Treatment Plan This clinician will continue to follow with you throughout the course of this patients rehabilitation treatment, and I will be available to meet with the patients family/support system to facilitate their understanding and the ongoing care of their family member. The goals of neuropsychological intervention shall be both educational and supportive to the family/support system as is deemed clinically appropriate. Additionally, I would recommend a referral to Dr. Causey for ongoing patient and family adjustment issues if they are coming to [place]. Thank you Thank you for the opportunity to assist in this patients care. Steven Laureano, Ph.D., ABPP Board Certified in Clinical Neuropsychology [facility] Board of Professional Psychology [place] Licensed Psychologist #[id number] Steven Laureano PhD Dec 12, 2016 1:33 pm
--- NOTE | 2016-12-12 14:54 | HHI.NSPN ---
(Jose Hair) History Chief Complaint: None (Jose Hair) Interval History 12/07: Pleasant 76-year-old male with a history of dementia who apparently was wandering in his neighborhood while his was at the grocery store. No definite trauma, but the patient has obvious abrasions to the left face and periorbital region. No history of seizure. No emesis reported. The patient denies any headaches dizziness vision problems pain which is numbness in the extremities. However he is noted to be a poor historian. He states that he may have fallen this evening. 12/08: The patient is awake and alert sitting in a chair when seen this afternoon. He has no complaints but did say he had a headache earlier which has resolved. His reports that he is at his baseline mental status. 12/09: Patient easily arousable. He is conversive and has no new complaints. 12/10: Patient remains awake and alert. He is conversive and has no complaints of headache. was questioning whether or not the patient has been worked up for diagnosis of NPH as he does have dementia and gait abnormality. He has no history of urinary incontinence however. His CT scan does show ventricular megaly however he has severe cortical atrophy as well. 12/11: The patient is awake and alert and interacts readily. He has no complaints when seen. A sitter is in the room with the patient for his safety. 12/12: The patient continues to do well and has no complaints. His states that the plan is to discharge him to [facility]. (Jose Hair) System Review Comments Constitutional: Patient denies any fever or chills. HEENT: Patient denies any facial pain or visual or hearing problems. Neck: Patient denies any neck pain. Respiratory: Patient denies any shortness of breath or productive cough. Cardiovascular: Patient states he had a heart "something or other" that he passed off to his . He denied any chest pain. Gastrointestinal: Patient denies any abdominal pain, nausea, vomiting or incontinence of stool. Genitourinary: Patient denies any incontinence of urine. Musculoskeletal: Patient denies any back pain and has no pain or weakness to the extremities. Neurologic: Patient denies any headache, dizziness, numbness or tingling. ( Jose Hair) Exam Results Vital Signs Date Time Temp Pulse Resp B/P Pulse Ox O2 Delivery O2 Flow Rate FiO2 12/12/16 12:09 97.2 76 18 125/76 95 12/11/16 20:30 Room Air Intake and Output 12/11/16 12/11/16 12/11/16 07:59 15:59 23:59 Intake Total 480 ml Balance 480 ml (Jose Hair) Physical Examination GENERAL: The patient is awake & alert and readily interacts, no apparent distress, affect normal. SKIN: Mild laceration and abrasions to the left hand and forearm w/o any active drainage, erythema or streaking. HEENT: Left facial & infraorbital ecchymosis w/resolved swelling NTTP. PERRLA, EOMI. MMM & pink. NECK: Neck supple, no JVD, trachea midline. CARDIOVASCULAR: S1S2 w/irregularly irregular heart rate, radial & pedal pulses 2 + bilaterally, cap refill < 2 sec, bilateral pedal edema w/vascular skin changes noted. RESPIRATORY: CTAB w/o W/R/R, equal excursion, nonlaboured, on RA. GASTROINTESTINAL: Abdomen soft, nontender, positive bowel sounds. MUSCULOSKELETAL: JAMES w/o difficulty, no evident deformity or clubbing. NEUROLOGICAL: AAO x1 (name only). Speech is clear and readily converses but is confused. Follows simple commands w/o difficulty. Sensation intact to light touch to all extremities. Motor strength 5/5 to all major flexion & extension muscle groups. (Jose Hair) Medical Decision Making Impression and Plan Impression: 1. Mild traumatic brain injury 2. Left facial contusions 3. Atrial fibrillation. Patient doing well and remains neurologically intact for self. Plan: Neuro checks. Non-chemical DVT prophylaxis. Continue keep blood pressure within normal parameters. Physical therapy consult to assess gait and ambulation. Patient may be discharged to rehab from NSGY's perspective. There is no need for follow up. (Jose Hair) Attending Statement I have personally seen and examined the patient on the date of this note. Pertinent documentation and study results have been reviewed by the undersigned. I have personally developed the treatment plan and performed medical decision making. Agree with findings, exam, and treatment plan as noted above. On my examination today the patient remains awake and alert but still very confused. Probably at baseline. Most recent CT scan with resolving mild subarachnoid hemorrhage. No further neurosurgical intervention or follow-up anticipated at this time. He is stable for discharge from a neurosurgical standpoint. (Feng Sykes MD) Jose Hair Dec 12, 2016 14:54 Feng Sykes MD Dec 12, 2016 19:34
[2016-12-12] MEDS ORDERED: HYOSCYAMINE SOLN 0.125 MG/ML 15 ML BTL PO PRN (15:00)
[2016-12-12 16:11] VITALS: BP 143/87; PULSE 83; RESP 18; TEMP 97.8; O2SAT 97
[2016-12-12 20:00] VITALS: BP 144/89; PULSE 97; RESP 20; TEMP 98.1; O2SAT 94
[2016-12-12] MEDS: VANCOMYCIN INJ 1,750 MG in SODIUM CHLORID 0.9% 500 ML INJ 500 ML IV SCH (20:39)
[2016-12-12] MEDS: CHLORHEXIDINE GLUCONATE 2 % 1 PACK (2 CLOTHS) TOP SCH (20:42)
[2016-12-12 22:49] LABS: C. DIFF EPI 027 PRESUMPTIVE NEGATIVE (NEGATIVE); C. DIFF TOXIN PCR NEGATIVE (NEGATIVE)
[2016-12-13] VITALS: BP 144/95; PULSE 72; RESP 20; TEMP 97.3; O2SAT 98
[2016-12-13 04:00] VITALS: BP 139/75; PULSE 85; RESP 20; TEMP 98; O2SAT 95
[2016-12-13 08:09] VITALS: BP 127/87; PULSE 84; RESP 20; TEMP 97.2; O2SAT 97
[2016-12-13] MEDS: FAMOTIDINE 20 MG/2 ML VIAL IV PUSH SCH (08:29)
[2016-12-13] MEDS: SODIUM CHLORIDE 0.9% FLUSH 10 ML FLUSH SCH (08:29)
--- NOTE | 2016-12-13 10:11 | HHI.PR ---
Subjective Remarks in no distress. looks comfortable. denies headache or pain. Objective Vitals Vital Signs Date Time Temp Pulse Resp B/P Pulse Ox O2 Delivery O2 Flow Rate FiO2 12/13/16 08:09 97.2 84 20 127/87 97 12/13/16 04:00 98.0 85 20 139/75 95 12/13/16 00:00 97.3 72 20 144/95 98 12/12/16 20:45 Room Air 12/12/16 20:00 98.1 97 20 144/89 94 12/12/16 16:11 97.8 83 18 143/87 97 12/12/16 12:09 97.2 76 18 125/76 95 I/O 12/12/16 12/12/16 12/12/16 12/13/16 12/13/16 12/13/16 07:00 15:00 23:00 07:00 15:00 23:00 Intake Total 490 ml 220 ml 370 ml Output Total 3 ml 1 ml 200 ml Balance -3 ml 489 ml 20 ml 370 ml Intake Oral 240 ml 220 ml 120 ml IV Total 250 ml 250 ml Output Urine Total 2 ml 1 ml 200 ml Stool Total 1 ml # Voids 2 1 # Bowel Movements 2 1 Result Diagram: 12/11/16 0841 Imaging Last Impressions Head CT 12/08/16 1000 Signed Impressions: Service Date/Time: Thursday, December 08, 2016 17:41 - CONCLUSION: Improvement in subarachnoid hemorrhage since the prior exam. Clare Reinoso MD Cervical Spine CT 12/07/16 0000 Signed Impressions: Service Date/Time: November 16:48 - CONCLUSION: 1. No acute fracture or prevertebral soft tissue swelling. 2. Significant degenerative disc disease at C6-7, C7-T1 and T1-T2. 3. No bony spinal canal stenosis or significant neural foraminal narrowing. Sukh Mejia MD Objective Remarks GENERAL: This is a well-nourished, well-developed patient, in no apparent distress. CARDIOVASCULAR: Regular rate and regular rhythm without murmurs, gallops, or rubs. RESPIRATORY: Clear to auscultation. Breath sounds equal bilaterally. No wheezes , rales, or rhonchi. GASTROINTESTINAL: Abdomen soft, non-tender, nondistended. Normal, active bowel sounds MUSCULOSKELETAL: Extremities without clubbing, cyanosis, or edema. NEURO: awake and alert,not oriented to place or time Procedures none Medications and IVs Current Medications IV Flush 2 ml 2 ml UNSCH PRN IV FLUSH FLUSH AFTER USING IV ACCESS; Start at 16:15; Stop 12/07/16 at 20:36; Status DC Sodium Chloride (NS 1000 ml Inj) 1,000 ml @ 84 mls/hr [id number] IV Last administered on 12/09/16 09:11; Start 12/07/16 at 21:00; Stop 12/09/16 at 10:41 ; Status DC Sodium Chloride (NS Flush) 2 ml UNSCH PRN .XX FLUSH AFTER USING IV ACCESS; Start 12/07/16 at 20:30 Sodium Chloride (NS Flush) 2 ml BID .XX Last administered on 12/13/16 08:29; Start 12/07/16 at 21:00 Acetaminophen (Tylenol) 650 mg Q6H PRN PO PAIN 1-10 AND/OR FEVER >101F; Start 12/07/16 at 20:30 Famotidine (Pepcid Inj) 20 mg Q12HR IV PUSH Last administered on 12/13/16 08:29 ; Start 12/07/16 at 21:00 Ondansetron HCl (Zofran Inj) 4 mg Q6H PRN IV NAUSEA OR VOMITING; Start at 20:30 Albuterol/ Ipratropium (Duoneb Neb) 1 ampule Q2HR NEB PRN INH WHEEZING; Start 12/07/16 at 20:30 Miscellaneous Information 1 Q361D XX ; Start 12/07/16 at 20:30 Chlorhexidine Gluconate (Chlorhexidine 2% Cloth) Taper DAILY@04 TOP Last administered on 12/09/16 04:00; Start 12/08/16 at 04:00; Stop 12/04/17 at 03:59 Chlorhexidine Gluconate (Chlorhexidine 2% Cloth) 3 pack UNSCH PRN TOP HYGIENIC CARE; Start 12/07/16 at 20:30 Senna/Docusate Sodium (Pastora-Colace) 1 tab BID PO Last administered on 09:13; Start 12/07/16 at 21:00; Stop 12/09/16 at 10:38; Status DC Magnesium Hydroxide (Milk Of Magnesia Liq) 30 ml Q12H PRN PO MILD - MODERATE CONSTIPATION; Start 12/07/16 at 20:30 Sennosides (Senokot) 17.2 mg Q12H PRN PO MODERATE - SEVERE CONSTIPATION; Start 12/07/16 at 20:30; Stop 12/09/16 at 10:38; Status DC Bisacodyl (Dulcolax Supp) 10 mg DAILY PRN RECTAL SEVERE CONSITIPATION; Start at 20:30 Lactulose 30 ml 30 ml DAILY PRN PO SEVERE CONSITIPATION; Start 12/07/16 at 20: 30; Stop 12/09/16 at 10:38; Status DC Piperacillin Sod/ Tazobactam Sod 100 ml @ 200 mls/hr Q6H IV Last administered on 12/09/16 09:13; Start 12/07/16 at 21:00; Stop 12/09/16 at 10:41; Status DC Vancomycin HCl 1000 mg/Sodium Chloride 250 ml @ 125 mls/hr ONCE ONCE IV Last administered on 12/07/16 23:33; Start 12/07/16 at 21:00; Stop 12/07/16 at 22:59 ; Status DC Pharmacy Profile Note 0 ml @ 0 mls/hr UNSCH OTHER ; Start 12/07/16 at 20:30 Vancomycin HCl/ Sodium Chloride (Vancomycin Inj/ NS 500 ml Inj) 515 ml @ 257.5 mls/ hr Q18H IV Last administered on 12/10/16 00:08; Start 12/08/16 at 09:00; Stop 12/10/16 at 09:31; Status DC Miscellaneous Information SPECIFIC LAB TO BE DRAWN:VANCO TROUGH DATE TO BE ONCE ONCE .XX Last administered on 12/09/16 20:45; Start 12/09/16 at 20 :45; Stop 12/09/16 at 20:46; Status DC Vancomycin HCl/ Sodium Chloride (Vancomycin Inj/ NS 500 ml Inj) 517.5 ml @ 250 mls/hr Q24H IV Last administered on 12/12/16 20:39; Start 12/10/16 at 21:00 Miscellaneous Information SPECIFIC LAB TO BE . ONCE ONCE .XX ; Start at 20:45; Stop 12/13/16 at 20:46 Hyoscyamine Sulfate (Levsin Liq) 0.125 mg Q4H PRN PO SECRETIONS; Start at 15:00; Status UNV A/P Assessment and Plan Small subdural hematoma - No intervention indicated - Repeat CT head with improving subdural hematoma - Neurosurgery f/u appreciated and cleared for discharge. - Continue PT and OT Cellulitis right lower extremity -cultures negative - switched to Keflex -Consult wound care pending Alzheimer dementia - Continue Aricept DVT GI prophylaxis - Avoid Teds SCDs - No pharmacological DVT prophylaxis due to ICH - Pepcid Discharge Planning d/w the again today; the has decided to take him home. will dc home with [facility]. see med list. d/w the patient, his and RN. time spent 31 min. Tamiko Nicolas MD Dec 13, 2016 10:11
--- NOTE | 2016-12-13 10:19 | HHI.DS ---
Discharge Summary Admission Date Dec 07, 2016 at 18:52 Discharge Date: Dec 13, 2016 Admitting Diagnosis Subarachnoid Hemorrhage. (1) Intracranial hemorrhage ICD Code: I62.9 Diagnosis: Principal Procedures none Brief History - From Admission 76-year-old pleasantly demented male presents after he eloped from home and has being found wandering his neighborhood. Per his statement she went to the grocery store and left him alone. Unknown history of fall however the patient does have some abrasions and bruises on the left side of his face. She states that he is not on anticoagulants. CT of the head in the emergency department revealed minimal acute subdural hemorrhage within the left high parietal region which likely is post traumatic. CBC/BMP: 12/11/16 0841 Significant Findings Laboratory Tests Test 12/11/16 08:41 Estimat Glomerular Filtration 78 ML/MIN (>89) Rate Imaging Last Impressions Head CT 12/08/16 1000 Signed Impressions: Service Date/Time: Thursday, December 08, 2016 17:41 - CONCLUSION: Improvement in subarachnoid hemorrhage since the prior exam. Clare Reinoso MD Cervical Spine CT 12/07/16 0000 Signed Impressions: Service Date/Time: November 16:48 - CONCLUSION: 1. No acute fracture or prevertebral soft tissue swelling. 2. Significant degenerative disc disease at C6-7, C7-T1 and T1-T2. 3. No bony spinal canal stenosis or significant neural foraminal narrowing. Sukh Mejia MD PE at Discharge GENERAL: This is a well-nourished, well-developed patient, in no apparent distress. CARDIOVASCULAR: Regular rate and regular rhythm without murmurs, gallops, or rubs. RESPIRATORY: Clear to auscultation. Breath sounds equal bilaterally. No wheezes , rales, or rhonchi. GASTROINTESTINAL: Abdomen soft, non-tender, nondistended. Normal, active bowel sounds MUSCULOSKELETAL: Extremities without clubbing, cyanosis, or edema. NEURO: awake and alert,not oriented to place or time Hospital Course Small subdural hematoma - No intervention indicated - Repeat CT head with improving subdural hematoma - Neurosurgery f/u appreciated and cleared for discharge. - Continue PT and OT Cellulitis right lower extremity -cultures negative - switched to Keflex -Consult wound care pending Alzheimer dementia - Continue Aricept DVT GI prophylaxis - Avoid Teds SCDs - No pharmacological DVT prophylaxis due to ICH - Pepcid Pt Condition on Discharge: Fair Discharge Disposition: Disch w/ Home Health Serv Discharge Time: > 30 minutes Discharge Instructions DIET: Follow Instructions for: Heart Healthy Diet Speech Therapy-Diet Recommends: Mechanical Soft, Chopped Meat w/Gravy Activities you can perform: Regular-No Restrictions Follow up Referrals: Neurosurgery PCP Follow-up Continued Medications: Cephalexin (Cephalexin) 500 Mg Cap 500 MG PO Q12H Infection Days 4 Ref 0 CAP (This prescription has been renewed) Donepezil HCl (Aricept) 10 Mg Tablet 10 MG PO DAILY@1600 Furosemide (Lasix) 20 Mg Tab 20 MG PO DAILY #30 Ref 0 TAB Levothyroxine (Levothyroxine) 175 Mcg Tab 175 MCG PO DAILY Thyroid #30 Ref 0 TAB Potassium Chloride ER (Potassium Chloride ER) 8 Meq Cap 8 MEQ PO DAILY Electrolyte Replacement #30 Ref 0 CAP Pravastatin (Pravastatin) 20 Mg Tab 20 MG PO DAILY Cholesterol Management #30 Ref 0 TAB Silver Sulfadiazine Topical (Silvadene Topical) 1 % Cream 1 APPLIC TOPICAL DAILY Wound Management #400 Ref 0 GM Discontinued Medications: Atenolol (Atenolol) 50 Mg Tab 50 MG PO DAILY Blood Pressure Management #30 Ref 0 TAB Tamiko Nicolas MD Dec 13, 2016 10:19
[2016-12-13 12:22] VITALS: BP 124/74; PULSE 90; RESP 20; TEMP 97.1; O2SAT 98
[2016-12-13] MEDS ORDERED: PHARMACY ORDERED LAB ONE (20:45)
== END 2016-12-13 15:04 | disposition home health service (06) | DRG 83 ==
LOC: NEPC 15:20 → NEDA 18:52 → N03A 20:31 → N05A 12-09 06:41 → N03A 12-09 06:41 → N05A 12-12 00:19
PROVIDERS: ADMIT Internal Medicine; ATTEND Internal Medicine
DX: S06.5X9A Traumatic subdural hemorrhage with loss of consciousness of unspecified duration, initial encounter (principal); S00.81XA Abrasion of other part of head, initial encounter; S00.83XA Contusion of other part of head, initial encounter; W19.XXXA Unspecified fall, initial encounter; L03.116 Cellulitis of left lower limb; L03.115 Cellulitis of right lower limb; G30.9 Alzheimer's disease, unspecified; F02.80 Dementia in other diseases classified elsewhere, unspecified severity, without behavioral disturbance, psychotic disturbance, mood disturbance, and anxiety; I48.91 Unspecified atrial fibrillation; I10 Essential (primary) hypertension; E78.5 Hyperlipidemia, unspecified; E03.9 Hypothyroidism, unspecified
CPT/HCPCS: 70450; 72125; 76937; 80053; 80202; 82550; 82565; 83735; 84100; 85025; 85610; 85730; 87040; 87493; 87641; 93005; J2543; J3370; J7030; J7040; J7050